=== PATIENT | female | born 1965 | race Caucasian/White ===

== ENCOUNTER 2020-04-21 16:57 | Emergency (ER) | payer MEDICARE, OTHER, SELFPAY ==
[2020-04-21 17:45] VITALS: PULSE 74; RESP 18; TEMP 36.8; O2SAT 95; BMI 31.1
--- NOTE | 2020-04-21 18:22 | HMH.EDUTC ---
[facility] – [place] Disposition Clinical Impression: Exposure to COVID-19 virus Disposition: Home, Self-Care Condition on Discharge: Good Instructions: DI for COVID-19 (Suspected or Confirmed ), Coronavirus Disease 2019, Preventing the Spread of Coronavirus Discharge Instructions Additional Instructions: *Monitor Temp, Over the counter Motrin or Tylenol as directed/as needed Tylenol every 4 hours and Motrin every 6 hours (as long as your family doctor has told you that you can take it) for fever or pain. and straight to ER if unable to lower temp less than 101.0 after medication given Follow up IMMEDIATELY for new or worsening symptoms or no Noticeable improvement over the next 48-72 hours. 911 for difficulty breathing or swallowing You were tested for today for COVID19 your test result should be back in the next 24-48 hours, you may call to the [facility] to see if your test results are back in the next 48 hours [phone] [facility] hours are 9am-9pm You was given a handout with instructions for Self Quarantine and Self isolation for while you wait on test results and what to do if they are positive If you are positive the Health Dept will be contacting you also Referrals: Lila Hughes [Primary Care Provider] - As needed Forms: Work/School Release Time of Disposition: 18:23 Medical Decision Making - Clarence Inquiry Pt receiving controlled substance: No Clarence was queried for this patient: No Vital Signs: 04/21/20 17:45 Temperature 98.2 F Temperature Source Oral Pulse Rate [Right] 74 Respiratory Rate 18 02 Sat by Pulse Oximetry 95 Oxygen Delivery Method Room Air Orders (Tests/Meds): ORDERS Category Date Time Status Covid-19 Nasal PCR ([facility]) Routine Lab 04/21/20 17:48 Received [facility] [place] HPI - General Stated complaint: Covid Test, Time Seen by Provider: 04/21/20 18:22 Mode of Arrival: Ambulatory Source of Information: Patient Limitations: No Limitations Description of Symptoms (Recalled from Triage Doc. by RN): COVID TEST D/T POSSIBLE EXPOSURE. DENIES SYMPTOMS HEENT Symptoms (Recalled from RN notes): No Resp Symptoms (Recalled from RN notes): No Skin Symptoms (Recalled from RN notes): No MS Symptoms (Recalled from RN notes): No Functional Status (Recalled from RN notes): WNL - History of Present Illness Provider Complaint: Patient state that she was around someone last week that has since tested positive for COVID States that she is not having any symptoms but she wanted to get tested - Related Data Previous Rx's Medication Instructions Recorded estradiol 2 mg tablet 2 mg PO DAILY #90 tab 10/06/19 Allergies Allergy/AdvReac Type Severity Reaction Status Date / Time No Known Allergies Allergy Verified 04/21/20 18:09 - Worker's Comp Is this a Worker's Comp case?: No [facility] History - Hepatitis A Screen Drug use history?: No High risk sexual behaviors?: No History of sexually transmitted infection?: No Currently employed?: No Childcare worker?: No Do you have indoor plumbing?: Yes Do you have electricity?: Yes Attestation statement:: This patient has been screened for Hepatitis A risk factors. I have reviewed the patient's past medical history: Yes ROS Obtained: Yes All systems reviewed & no additional complaints, Yes Systems reviewed as appropriate & no additional complaints - Constitutional Constitutional: Reports system reviewed and no additional complaints, except as docu, Denies body ache, Denies chills, Denies fever(s), Denies headache(s) - ENT Ears, Nose, Mouth, and Throat: Reports system reviewed and no additional complaints, except as docu - Cardiovascular Cardiovascular: Reports system reviewed and no additional complaints, except as docu - Respiratory Respiratory: Reports system reviewed and no additional complaints, except as docu Physical Exam - General General appearance: alert, in no apparent distress - ENT ENT exam: Present: normal exam, normal oropharynx, mucous membra
[2020-04-21 18:28] VITALS: BP 00/00; PULSE 74; RESP 18; TEMP 36.8; O2SAT 95
== END 2020-04-21 18:30 | disposition home or self-care (01) ==
PROVIDERS: Emergency Provider Nurse Practitioner; PCP Family Medicine
DX: Z20.822 Contact with and (suspected) exposure to COVID-19 (principal)
CPT/HCPCS: 99202; G0463; U0003

== ENCOUNTER 2021-09-28 23:05 | Emergency (ER) | payer MEDICARE, MEDICAID, SELFPAY ==
[2021-09-28 23:08] VITALS: BP 126/91; PULSE 87; RESP 20; TEMP 36.9; O2SAT 99; BMI 32.9
--- NOTE | 2021-09-28 23:32 | XR_ITS ---
PROCEDURE INFORMATION: Exam: XR Left Knee Exam date and time: 09/28/2021 11:40 PM Age: 55 years old Clinical indication: Injury or trauma; Fall; Sprain or strain; Patella or knee; Left TECHNIQUE: Imaging protocol: Radiologic exam of the Left knee. Views: 3 views. COMPARISON: No relevant prior studies available. FINDINGS: Bones/joints: No fracture. No blastic or lytic lesions. No significant joint effusion is present. Question mild osteoarthritic joint space narrowing in the tibiofemoral compartments. Soft tissues: No periostitis or osteolysis. No gross soft tissue abnormalities. No foreign bodies. Other findings: Normal alignment. IMPRESSION: 1. No acute findings. 2. Minor osteoarthritic changes.
--- NOTE | 2021-09-28 23:40 | XR_ITS ---
PROCEDURE INFORMATION: Exam: XR Right Knee Exam date and time: 09/28/2021 11:39 PM Age: 55 years old Clinical indication: Injury or trauma; Fall; Sprain or strain; Patella or knee; Right; Additional info: Pain TECHNIQUE: Imaging protocol: Radiologic exam of the Right knee. Views: 3 views. COMPARISON: No relevant prior studies available. FINDINGS: Bones/joints: No fracture. No blastic or lytic lesions. No significant joint effusion is present. Slight medial compartment joint space narrowing with mild medial joint line spurring. Soft tissues: No periostitis or osteolysis. No gross soft tissue abnormalities. No foreign bodies. Other findings: Normal alignment. IMPRESSION: 1. No acute findings. 2. Minor osteoarthritic changes in the medial compartment.
--- NOTE | 2021-09-29 00:49 | HMH.EDLOEX ---
ED Disposition Clinical Impression: Knee sprain, bilateral Contusion of hip, left Qualifiers: Encounter type: initial encounter Qualified Code(s): S70.02XA - Contusion of left hip, initial encounter Disposition: Home, Self-Care Condition on Discharge: Good Instructions: DI for Knee Pain Additional Instructions: ice and wt bearing as rodriguez and see pcp for follow up Referrals: Sudhakar Mathew MD [Primary Care Provider] - - Critical Care Critical Care Time: No Attestation: On 09/28/21, the high probability of a clinically significant, sudden or life threatening deterioration of the following system(s) required my full and direct attention, intervention and personal management. The time I documented below is in addition to time spent performing reported procedures but includes the following listed in this critical care notation. Medical Decision Making - Medical Records Medical records reviewed: Yes: I reviewed the patient's medical records. - Clarence Inquiry Pt receiving controlled substance: No Vital Signs: 09/28/21 23:08 Temperature 98.5 F Temperature Source Oral Pulse Rate [Left] 87 Respiratory Rate 20 Blood Pressure [Right Arm] 126/91 H Blood Pressure Mean [Right Arm] 102 02 Sat by Pulse Oximetry 99 Oxygen Delivery Method Room Air - Lab Data Lab results reviewed: Yes: I reviewed the patient's lab results. Orders (Tests/Meds): ED MEDICATIONS Discontinued Medications Generic Name Dose Route Start Last Admin Trade Name Momo PRN Reason Stop Dose Admin Ketorolac Tromethamine 60 mg 09/28/21 23:33 09/28/21 23:44 Ketorolac 30mg/Ml Vial IM 09/28/21 23:34 60 mg ONCE ONE Administration Methylprednisolone Sodium Succinate 125 mg 09/28/21 23:33 09/28/21 23:38 Methylprednisolone Sod Succ 125mg Vial IM 09/28/21 23:34 125 mg ONCE ONE Administration Ondansetron HCl 4 mg 09/28/21 23:33 09/28/21 23:38 Ondansetron 4mg Odt SL 09/28/21 23:34 4 mg ONCE ONE Administration - Radiology Data #1 Image(s): Pelvis, Hip, Knee Image Reviewed: Yes I have reviewed radiologist's interpretation Preliminary Findings: No Fracture Seen Medical Decision Narrative: acute injury with no fx noted - Lower Extremity Injury HPI - General Chief Complaint: Extremity Injury, Lower Stated Complaint: AO 07/02/22 2200 Injury left knee Time Seen by Provider: 09/29/21 00:49 Mode of Arrival: Wheelchair Source of Information: Patient, Medical Record Limitations: No Limitations Description of Symptoms (Recalled from ER Triage Doc. 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 the pt states that with impact the pain caused nausea and that she still feels it a little. pt states the pain is in the left knee at the bottom of the kneecap. - History of Present Illness HPI Narrative: slipped off money bars with knee and hip pain - no abd pain or loc MD complaint: hip injury, knee injury Onset (ago): hour(s) Injury: Left: hip, knee Type of Injury: blunt Place: home Severity: moderate Context: fall Associated symptoms: unable to bear weight Other symptoms: none - Related Data Previous Rx's Medication Instructions Recorded estradiol 2 mg tablet See Rx Instructions .ROUTE 08/06/20 .COMPLEX #90 tab Allergies Allergy/AdvReac Type Severity Reaction Status Date / Time No Known Allergies Allergy Verified 04/21/20 18:09 [facility] History - Hepatitis A Screen Attestation statement:: This patient has been screened for Hepatitis A risk factors. I have reviewed the patient's past medical history: Yes ROS Obtained: Yes All systems reviewed & no additional complaints - Constitutional Constitutional: Denies fever(s) - Eyes Eyes: Denies change in vision - ENT Ears, Nose, Mouth, and Throat: Denies sore throat - Cardiovascular Cardiovascular: Denies chest pain - Respiratory Respiratory: Denies shor
--- NOTE | 2021-09-29 00:54 | XR_ITS ---
PROCEDURE INFORMATION: Exam: XR Left Hip Exam date and time: 09/29/2021 1:00 AM Age: 55 years old Clinical indication: Injury or trauma; Fall; Blunt trauma (contusions or hematomas); Left; Hip TECHNIQUE: Imaging protocol: Radiologic exam of the Left hip. Views: 2 or 3 views hip with pelvis when performed. COMPARISON: No relevant prior studies available. FINDINGS: Bones/joints: No fracture. Hip joint spaces and articular surfaces are grossly well-maintained. No radiographic evidence to suggest transient osteoporosis or avascular necrosis. 9 mm probable bone island projecting in the left pubis. The visualized SI joints, pubic symphysis, and sacrum/pelvis were unremarkable. Moderate lower lumbar degenerative disc disease at L4-L5 and L5-S1. Soft tissues: No gross soft tissue abnormalities. Other findings: Normal alignment. The anatomic configuration does not specifically predispose to femoro-acetabular impingement. IMPRESSION: No acute findings.
[2021-09-29 01:44] VITALS: BP 125/79; PULSE 88; RESP 18; TEMP 36.8; O2SAT 98
== END 2021-09-29 02:06 | disposition home or self-care (01) ==
PROVIDERS: Emergency Provider Emergency Medicine; PCP Internal Medicine Adolescent Medicine
DX: S83.91XA Sprain of unspecified site of right knee, initial encounter (principal); S83.92XA Sprain of unspecified site of left knee, initial encounter; S70.02XA Contusion of left hip, initial encounter; W09.2XXA Fall on or from jungle gym, initial encounter
CPT/HCPCS: 73502; 73562; 96374; 96375; 99284

== ENCOUNTER 2021-10-29 21:34 | Emergency (ER) | payer MEDICARE, MEDICAID, SELFPAY ==
--- NOTE | 2021-10-29 21:52 | ECG_ITS ---
APPROVED REPORT Exam: Resting ECG HR:74 bpm ECG Measurements Heart Rate 74 AXES IA 204 P 70 QRSd 122 QRS 61 QT 408 T 60 QTc 435 Conclusion SINUS RHYTHM MODERATE INTRAVENTRICULAR CONDUCTION DELAY [110+ ms QRS DURATION] BORDERLINE ECG UNCONFIRMED REPORT Electronically signed by : Sudhakar Mathew MD 10/30/2021 21:02:29
[2021-10-29 21:59] VITALS: BP 147/87; PULSE 83; RESP 18; TEMP 37.2; O2SAT 93; BMI 31.1
--- NOTE | 2021-10-29 22:18 | XR_ITS ---
PROCEDURE INFORMATION: Exam: XR Chest Exam date and time: 10/29/2021 10:30 PM Age: 55 years old Clinical indication: Patient HX: Shortness of breath. Smoker. ; Additional info: Chest pain, short of breath TECHNIQUE: Imaging protocol: Radiologic exam of the chest. Views: 1 view. COMPARISON: No relevant prior studies available. FINDINGS: Lungs: Interstitial haziness in both lungs findings concerning for interstitial pneumonia superimposed on chronic interstitial lung disease. Granulomatous changes. Pleural spaces: Unremarkable. No pleural effusion. No pneumothorax. Heart/Mediastinum: Unremarkable. No cardiomegaly. Bones/joints: Unremarkable. IMPRESSION: Subtle interstitial pneumonia cannot be ruled out. Correlate clinically.
[2021-10-29 22:20] LABS: Coronavirus 19, PCR Not Detected (NotDetected); Influenza A, PCR Not Detected (NotDetected); Influenza B, PCR Not Detected (NotDetected)
[2021-10-29 22:23] LABS: Basophils # 0.1 K/mm3 (0-0.2); Basophils % 2.1 % (0.1-2.0); Eosinophils # 0.3 K/mm3 (0.0-0.4); Eosinophils % 5.4 % (0.1-12.0); Hematocrit 39.4 % (37.0-47.0); Hemoglobin 12.7 g/dL (12.2-16.2); Lymphocytes # 2.4 K/mm3 (0.7-4.5); Mean Corpuscular HGB Conc 32.2 g/dL (31.8-35.4); Mean Corpuscular Hemoglobin 31.2 pg (27.0-31.2); Mean Corpuscular Volume 96.8 fl (81-99); Mean Platelet Volume 9.2 fl (7.4-10.4); Monocytes # 0.4 K/mm3 (0.1-1.0); Monocytes % 6.2 % (1.7-9.3); Neutrophils # 2.9 K/mm3 (1.8-7.8); Neutrophils % 47.3 % (37.0-80.0); Platelet Count 180 K/mm3 (142-424); Red Blood Count 4.07 M/mm3 (4.20-5.40); Red Cell Distribution Width 13.1 % (11.5-17.5); White Blood Count 6.1 K/mm3 (4.8-10.8)
[2021-10-29 22:29] LABS: Alanine Aminotransferase 15 U/L (12-78); Albumin Level 3.7 g/dl (3.5-5.0); Albumin/Globulin Ratio 1.5 (1.1-1.8); Alkaline Phosphatase 109 U/L (38-126); Anion Gap 7.3 mEq/L (5-15); Aspartate Amino Transferase 25 U/L (14-36); Blood Urea Nitrogen 10 mg/dl (7-17); Calcium 9.1 mg/dl (8.4-10.2); Carbon Dioxide 30 mmol/L (22.0-30.0); Chloride 105 mmol/L (98-107); Creatinine Clearance Estimated 76 mL/min (50-200); Estimated Glomerular Filt Rate 57 ml/min (>60); GFR (African American) 69 ML/MIN (>60); Globulin 2.5 g/dL (1.3-3.2); Glucose 126 mg/dl (74-100); Potassium 3.3 mmoL/L (3.5-5.1); Sodium 139 mmol/L (136-145); Total Protein,Serum 6.2 g/dl (6.3-8.2)
[2021-10-29 22:32] LABS: Bilirubin,Total < 0.1 mg/dl (0.2-1.3)
[2021-10-29 22:49] LABS: Troponin I < 0.01 ng/ml (0.00-0.034)
[2021-10-29 23:00] VITALS: BP 142/89; PULSE 69; RESP 16; TEMP 36.7; O2SAT 94
--- NOTE | 2021-10-29 23:20 | HMH.EDGENADL ---
ED Disposition Clinical Impression: COPD exacerbation, Atypical pneumonia Disposition: Home, Self-Care Condition on Discharge: Fair Instructions: DI for Chronic Obstructive Pulmonary Disease, DI for Atypical Pneumonia Additional Instructions: You have been evaluated for cough, body aches, shortness of breath. You have been diagnosed with a COPD exacerbation. Please take prednisone as prescribed. Take 4 more days of azithromycin, for 5 days total. Use inhaler as needed. Follow-up with your primary care doctor. Return to the emergency department at once for any new or worsening symptoms, difficulty breathing, chest pain, other concerns. Prescriptions: Ipratropium/Albuterol Sulfate [Combivent Respimat Inh] 2 puff IH QID #1 each Transmission Status: Received by [facility] predniSONE [Prednisone 20mg Tab] 40 mg PO DAILY #10 tab Transmission Status: Received by [facility] Azithromycin [Z-Tom 250mg Tab] 250 mg PO DAILY #4 tab Transmission Status: Received by [facility] Referrals: Sudhakar Mathew MD [Primary Care Provider] - Time of Disposition: 23:27 - Critical Care Critical Care Time: No Attestation: On 10/29/21, the high probability of a clinically significant, sudden or life threatening deterioration of the following system(s) required my full and direct attention, intervention and personal management. The time I documented below is in addition to time spent performing reported procedures but includes the following listed in this critical care notation. Medical Decision Making - Medical Records Medical records reviewed: Yes: I reviewed the patient's medical records. - Clarence Inquiry Pt receiving controlled substance: No Vital Signs: 10/29/21 21:59 Temperature 98.9 F Temperature Source Oral Pulse Rate [Apical] 83 Respiratory Rate 18 Blood Pressure [Right Arm] 147/87 H Blood Pressure Mean [Right Arm] 107 Blood Pressure Source [Right Arm] Automatic Cuff Blood Pressure Position [Right Arm] Sitting 02 Sat by Pulse Oximetry 93 L Oxygen Delivery Method Room Air - Lab Data Lab Results 10/29/21 21:54: SARS-CoV-2 (PCR) Not detected, Influenza A Untype (PCR) Not detected, Influenza Type B (PCR) Not detected 10/29/21 22:00: WBC 6.1, RBC 4.07 L, Hgb 12.7, Hct 39.4, MCV 96.8, MCH 31.2, MCHC 32.2, RDW 13.1, Plt Count 180, MPV 9.2, Neut % (Auto) 47.3, Lymph % (Auto) 39.0, [place] % (Auto) 6.2, Eos % (Auto) 5.4, Baso % (Auto) 2.1 H, Neut # (Auto) 2.9, Lymph # (Auto) 2.4, [place] # (Auto) 0.4, Eos # (Auto) 0.3, Baso # (Auto) 0.1 10/29/21 22:00: Sodium 139, Potassium 3.3 L, Chloride 105, Carbon Dioxide 30, Anion Gap 7.3, BUN 10, Creatinine 1.00, Estimated Creat Clear 76, Estimated GFR 57 L, Est GFR ( Amer) 69, Glucose 126 H, Calcium 9.1, Total Bilirubin < 0.1 L, AST 25, ALT 15, Alkaline Phosphatase 109, Troponin I < 0.01, Total Protein 6.2 L, Albumin 3.7, Globulin 2.5, Albumin/Globulin Ratio 1.5 10/29/21 22:18: VBG pH 7.34, VBG pCO2 52.9 H, VBG pO2 46.7 H, VBG HCO3 27.9, VBG Total CO2 29.5 H, VBG O2 Saturation 84.4 H, VBG Base Excess 2.1 Result diagrams: 10/29/21 22:00 10/29/21 22:00 Orders (Tests/Meds): ED MEDICATIONS Generic Name Dose Route Start Last Admin Trade Name Freq PRN Reason Stop Dose Admin Azithromycin 500 mg/ Sodium 250 mls @ 250 mls/hr 10/29/21 23:30 10/29/21 23:47 Chloride IV 11/12/21 23:29 250 mls/hr Q24H MELINA Administration Discontinued Medications Generic Name Dose Route Start Last Admin Trade Name Freq PRN Reason Stop Dose Admin Ceftriaxone Sodium 1 gm/ 50 mls @ 100 mls/hr 10/29/21 23:29 10/29/21 23:32 Sodium Chloride IV 10/29/21 23:58 100 mls/hr ONCE ONE Administration Methylprednisolone Sodium Succinate 125 mg 10/29/21 23:29 10/29/21 23:32 Methylprednisolone Sod Succ 125mg Vial IV 10/29/21 23:30 125 mg ONCE ONE Administration ORDERS Category Date Time Status Troponin I Q3H Lab
[2021-10-29 23:40] LABS: VBG Base Excess 2.1 mmol/L (-2.4-2.3); VBG HCO3 27.9 mmol/L (23-30); VBG Oxygen Saturation 84.4 % (50-70); VBG PH 7.34 mmol/L (7.31-7.41); VBG PO2 46.7 mmol/L (28-40); VBG Total CO2 29.5 mmol/L (23-27)
[2021-10-29 23:43] LABS: VBG PCO2 52.9 mmol/L (35-51)
--- NOTE | 2021-10-29 23:44 | PC.NURSE ---
VBG RESULTS TO DR. LINARES. PH 7.34 CO2 52.9 PO2 46.7 HCO3 27.9.
[2021-10-30] VITALS: BP 148/92; PULSE 68; RESP 16; O2SAT 93
[2021-10-30 00:24] VITALS: BP 148/92; PULSE 83; RESP 18; TEMP 37.2; O2SAT 93
[2021-10-30 00:45] VITALS: PULSE 66; PULSE 70
[2021-10-30 01:00] VITALS: BP 149/94; PULSE 84; RESP 16; TEMP 36.8; O2SAT 94
== END 2021-10-30 01:15 | disposition home or self-care (01) ==
PROVIDERS: Emergency Provider Emergency Medicine; PCP Internal Medicine Adolescent Medicine
DX: J18.9 Pneumonia, unspecified organism (principal); J44.1 Chronic obstructive pulmonary disease with (acute) exacerbation; Z91.19 Patient's noncompliance with other medical treatment and regimen; Z72.0 Tobacco use
CPT/HCPCS: 71045; 80053; 82803; 84484; 85025; 93005; 94640; 96365; 96367; 96375; 99284; C9803; J0456; J0696; U0003; U0005

== ENCOUNTER 2021-12-05 21:28 | Emergency (ER) | payer MEDICARE, MEDICAID, SELFPAY ==
[2021-12-05 21:30] VITALS: BP 175/108; PULSE 84; RESP 16; TEMP 37.7; O2SAT 89; BMI 29.2
--- NOTE | 2021-12-05 21:36 | ECG_ITS ---
APPROVED REPORT Exam: Resting ECG HR:83 bpm ECG Measurements Heart Rate [address] 179 P 77 QRSd 114 QRS 72 QT 365 T 65 QTc 405 Conclusion SINUS RHYTHM MODERATE INTRAVENTRICULAR CONDUCTION DELAY [110+ ms QRS DURATION] NONSPECIFIC T-WAVE ABNORMALITY BORDERLINE ECG UNCONFIRMED REPORT Electronically signed by : Sudhakar Mathew MD 12/08/2021 15:28:38
[2021-12-05 21:45] LABS: Coronavirus 19, PCR Not Detected (NotDetected); Influenza A, PCR Not Detected (NotDetected); Influenza B, PCR Not Detected (NotDetected)
--- NOTE | 2021-12-05 21:57 | PC.NURSE ---
RT at BS to administer breathing treatment
[2021-12-05 22:00] VITALS: BP 175/108; PULSE 78; O2SAT 98
--- NOTE | 2021-12-05 22:09 | XR_ITS ---
PROCEDURE INFORMATION: Exam: XR Chest Exam date and time: 12/05/2021 10:13 PM Age: 55 years old Clinical indication: Shortness of breath; Additional info: Short of air TECHNIQUE: Imaging protocol: Radiologic exam of the chest. Views: 2 views. COMPARISON: CR XR CHEST PORTABLE 10/29/2021 10:30 PM FINDINGS: Lungs: No consolidation. Pleural spaces: No pneumothorax. Heart/Mediastinum: No cardiomegaly. Bones/joints: No acute fracture. IMPRESSION: No acute findings.
[2021-12-05 22:17] LABS: Microscopic, Urine URINE MICROSCOPIC (MICROSCOPIC)
[2021-12-05 22:30] VITALS: BP 188/121; PULSE 79; O2SAT 93
--- NOTE | 2021-12-05 22:40 | PC.NURSE ---
Pt given warm blanket and drink per request
[2021-12-05 22:53] LABS: Appearance,Urine CLEAR (Clear); Blood, Urine TRACE-I (Negative); Color,Urine YELLOW (Yellow); Glucose,Urine (UA) Negative (Negative); Ketones,Urine Negative (Negative); Leukocyte Esterase,Urine Negative (Negative); Nitrate,Urine Negative (Negative); Protein,Urine TRACE (Negative); Specific Gravity, Urine >= 1.030 (1.005-1.030)
[2021-12-05 22:55] LABS: Bilirubin,Urine 1+ (Negative)
[2021-12-05 23:00] VITALS: BP 193/114; PULSE 74; O2SAT 93
[2021-12-05 23:07] LABS: Squamous Epithelial Cell,Urine Occasional #/hpf (0-5); WBC,Urine Occasional #/hpf (0-3)
[2021-12-05 23:08] LABS: Bacteria,Urine 1+ /lpf; Mucus,Urine 2+ /lpf
--- NOTE | 2021-12-05 23:12 | HMH.EDSOB ---
Discharge Plan Disposition Chief Complaint: Shortness of Breath/Dyspnea Prescriptions Prescriptions: No Action buprenorphine-naloxone 1 EACH film 1 each SL DAILY albuterol sulfate 8.5 GM HFA aerosol inhaler 8.5 gm IH Q4-6H PRN (Reason: copd) azithromycin 250 MG tablet 250 mg PO DAILY Qty: 4 0RF prednisone 20 MG tablet 40 mg PO DAILY Qty: 10 0RF ipratropium-albuterol 120 PUFF mist 2 puff IH QID Qty: 1 0RF Referrals Follow up/Referrals: Lila Hughes [Primary Care Provider] - See instructions Clinical Impressions Clinical Impression: Acute exacerbation of chronic obstructive airways disease Instructions Patient Instructions: DI for Chronic Obstructive Pulmonary Disease Discharge ED Provider: Raymond Mendez Resp/SOB HPI General Chief Complaint: Shortness of Breath/Dyspnea Stated Complaint: SOA AND CASTANON Time Seen by Provider: 12/05/21 23:13 Mode of Arrival: Ambulatory Source of Information: Patient and Medical Record Limitations: No Limitations Description of Symptoms (Recalled from ER Triage Doc. by RN): pt states she has been short of breath for a few days pt also states pt was exposed to covid over the weekend pt has copd. pt has not had home o2 for 2.5 months since her house fell in on it History of Present Illness pt with hx of copd ans has been off o2 and breathing treatment s - has chills and exposure to covid-19 Complaint: shortness of breath and cough Onset (ago): day(s) Severity: moderate Known history of: COPD Associated symptoms: chest pain and cough Treatment prior to arrival: bronchodilator Related Data Home oxygen amount: 2 liters Home Medications Medication Instructions Recorded Confirmed albuterol sulfate 90 mcg/actuation 8.5 gm inhalation Q4-6H PRN copd 10/29/21 10/29/21 aerosol inhaler buprenorphine 8 mg-naloxone 2 mg 1 each sublingual DAILY drug 10/29/21 10/29/21 sublingual film withdrawal Previous Rx's Medication Instructions Recorded azithromycin 250 mg tablet 250 mg PO DAILY #4 tabs 10/29/21 ipratropium 20 mcg-albuterol 100 2 puff inhalation QID #1 ea 10/29/21 mcg/actuation mist for inhalation prednisone 20 mg tablet 40 mg PO DAILY #10 tabs 10/29/21 Allergies Allergy/AdvReac Type Severity Reaction Status Date / Time No Known Allergies Allergy Verified 04/21/20 18:09 [facility] Social History Smoking Status: Current every day smoker alcohol intake: never current occupational status: unemployed Travel in the last 8 weeks: None ROS Obtained: Yes All systems reviewed & no additional complaints except as documented Constitutional Constitutional: Denies fever(s) and Reports malaise Cardiovascular Cardiovascular: Reports dyspnea Respiratory Respiratory: Reports cough and Reports dyspnea Physical Exam General General appearance: alert Head Head exam: normocephalic Eye Eye exam: Present PERRL and EOMI ENT ENT exam: Present mucous membranes moist Neck Neck exam: Present trachea midline Respiratory Respiratory exam: Present normal lung sounds bilaterally and wheezes; Absent respiratory distress Cardiovascular Cardiovascular exam: Present regular rate and systolic murmur Abdominal Exam Abdominal exam: Present soft Extremities Exam Extremities exam: Absent calf tenderness Neurological Exam Neurological exam: Present alert, oriented X3 and CN II-XII intact Psychiatric Psychiatric exam: Present normal affect Skin Skin exam: Absent rash Medical Decision Making Medical Records Medical records reviewed: Yes I reviewed the patient's medical records. Clarence Inquiry Pt receiving controlled substance: No Vital Signs: 12/05/21 21:30 12/05/21 22:00 12/05/21 22:30 Temperature 99.8 F H Temperature Source Oral Pulse Rate 78 79 Pulse Rate [Right] 84 Respiratory Rate 16 Blood Pressure 175/108 H 188/121 H Blood Pressure [Right Arm] 175/108 H Blood Pressure Mean [Right Arm] 130 Blood Pressure Source
[2021-12-05 23:30] VITALS: BP 160/100; PULSE 77; O2SAT 90
[2021-12-05 23:37] LABS: Basophils # 0.1 K/mm3 (0-0.2); Basophils % 0.8 % (0.1-2.0); Eosinophils # 0.2 K/mm3 (0.0-0.4); Eosinophils % 2.3 % (0.1-12.0); Hematocrit 42.1 % (37.0-47.0); Hemoglobin 13.3 g/dL (12.2-16.2); Lymphocytes # 1.3 K/mm3 (0.7-4.5); Lymphocytes % 13.4 % (10-50); Mean Corpuscular HGB Conc 31.6 g/dL (31.8-35.4); Mean Corpuscular Hemoglobin 29.5 pg (27.0-31.2); Mean Corpuscular Volume 93.5 fl (81-99); Mean Platelet Volume 8.9 fl (7.4-10.4); Monocytes # 0.2 K/mm3 (0.1-1.0); Monocytes % 2.1 % (1.7-9.3); Neutrophils # 7.8 K/mm3 (1.8-7.8); Neutrophils % 81.4 % (37.0-80.0); Platelet Count 175 K/mm3 (142-424); Red Cell Distribution Width 13.1 % (11.5-17.5); White Blood Count 9.6 K/mm3 (4.8-10.8)
[2021-12-05 23:37] LABS: ABG Base Excess -1.6 mmol/L (-2.4-2.3); ABG HCO3 23.3 mmhg (22.0-26.0); ABG Oxygen Saturation 90 % (90-100); ABG PCO2 38.8 mmhg (35.0-45.0); ABG PO2 52.9 mmhg (80-100); ABG TCO2 24.5 mmhg (23-27)
[2021-12-05 23:38] LABS: Allen's Test Acceptable; Source Left Radial
[2021-12-05 23:46] LABS: Alanine Aminotransferase 9 U/L (12-78); Albumin Level 3.4 g/dl (3.5-5.0); Albumin/Globulin Ratio 1.4 (1.1-1.8); Alkaline Phosphatase 113 U/L (38-126); Anion Gap 4.7 mEq/L (5-15); Aspartate Amino Transferase 18 U/L (14-36); Blood Urea Nitrogen 9 mg/dl (7-17); Calcium 8.3 mg/dl (8.4-10.2); Carbon Dioxide 30 mmol/L (22.0-30.0); Chloride 109 mmol/L (98-107); Creatinine Clearance Estimated 80 mL/min (50-200); Estimated Glomerular Filt Rate 65 ml/min (>60); GFR (African American) 78 ML/MIN (>60); Globulin 2.5 g/dL (1.3-3.2); Glucose 86 mg/dl (74-100); Potassium 3.7 mmoL/L (3.5-5.1); Sodium 140 mmol/L (136-145); Total Protein,Serum 5.9 g/dl (6.3-8.2)
--- NOTE | 2021-12-05 23:47 | PC.NURSE ---
Pt complains of CASTANON and asks for Tylenol. RN notified.
[2021-12-05 23:49] LABS: Bilirubin,Total < 0.1 mg/dl (0.2-1.3)
[2021-12-05 23:51] LABS: C-Reactive Protein 25.9 mg/L (0-4)
[2021-12-06 00:01] LABS: Troponin I < 0.01 ng/ml (0.00-0.034)
[2021-12-06 00:02] LABS: Procalcitonin 0.066 ng/mL (0.0-2.0)
[2021-12-06 00:04] LABS: Erythrocyte Sedimentation Rate 33 mm/hr (0-30)
[2021-12-06 00:32] VITALS: BP 146/86; PULSE 78; RESP 16; TEMP 36.6; O2SAT 89
== END 2021-12-06 00:35 | disposition home or self-care (01) ==
PROVIDERS: Emergency Provider Emergency Medicine; PCP Family Medicine
DX: J44.1 Chronic obstructive pulmonary disease with (acute) exacerbation (principal); Z20.822 Contact with and (suspected) exposure to COVID-19; Z79.899 Other long term (current) drug therapy; Z72.0 Tobacco use
CPT/HCPCS: 71046; 80053; 81001; 82803; 84145; 84484; 85025; 85651; 86140; 93005; 96365; 96375; 99285; C9803; U0003; U0005

== ENCOUNTER 2022-01-31 16:40 | Emergency (ER) | payer MEDICARE, MEDICAID, SELFPAY ==
[2022-01-31 16:43] VITALS: BP 148/103; PULSE 84; RESP 18; TEMP 36.8; O2SAT 99; BMI 32.9
[2022-01-31 17:04] LABS: Coronavirus 19, PCR Not Detected (NotDetected); Influenza A, PCR Not Detected (NotDetected); Influenza B, PCR Not Detected (NotDetected)
--- NOTE | 2022-01-31 17:25 | PC.NURSE ---
pt in bed, pt had 7up with her that was sitting in the chair pt asked me to give it to her
[2022-01-31 17:30] VITALS: BP 135/82; PULSE 74; O2SAT 98
--- NOTE | 2022-01-31 17:41 | PC.NURSE ---
ED MD AT BEDSIDE FOR EVALUATION
--- NOTE | 2022-01-31 17:42 | HMH.EDGENADL ---
Discharge Plan Disposition Patient Disposition: Home, Self-Care Condition: Good Prescriptions Prescriptions: New ondansetron 4 mg tablet,disintegrating 4 mg PO Q8H 4 Days Qty: 12 0RF No Action buspirone 10 mg tablet 10 mg PO BID Qty: 60 2RF ipratropium-albuterol 0.5 mg-3 mg(2.5 mg base)/3 mL solution for nebulization 3 ml inhalation QID PRN (Reason: shortness of breath or wheezing) Qty: 180 0RF albuterol sulfate 90 mcg/actuation HFA aerosol inhaler 1 inh IH Q4-6H PRN (Reason: copd) Qty: 8.5 0RF calcium polycarbophil [FiberCon] 625 mg tablet 1,250 mg PO DAILY Qty: 60 0RF prednisone 10 mg tablet 10 mg PO DAILY Qty: 25 0RF Rx Instructions: 2 tabs x5 days, then 1 tab x5 days gabapentin 300 mg capsule 300 mg PO TID Qty: 90 2RF ipratropium-albuterol 20-100 mcg/actuation mist 1 puff IH QID Qty: 1 1RF Referrals Follow up/Referrals: Raymond Mendez MD [Primary Care Provider] - See instructions Activity Restrictions/Add. Instructions Additional Instructions/Restrictions: At this time was felt you are safe to be discharged home. If new or worsening symptoms please do not hesitate to return to the emergency department. Please take your medication as prescribed. Clinical Impressions Clinical Impression: Diarrhea Instructions Patient Instructions: DI for Diarrhea and Traveler's Diarrhea -- Adult, DI for Diarrhea and Traveler's Diarrhea -- Child, DI for Nausea -- Adult, DI for Nausea -- Child Discharge ED Provider: Frank Mckoy General Adult HPI General Chief complaint: Nausea/Vomiting/Diarrhea Stated complaint: sent fr [facility]oli bodysophie,diarrhea Time Seen by Provider: 01/31/22 17:38 Mode of Arrival: Ambulatory Limitations: No Limitations Description of Symptoms (Recalled from ER Triage Doc. by RN): PT REPORTS DIARRHEA X 2 DAYS. HEADACHE AND CHILLS History of Present Illness HPI narrative: Patient is a 56-year-old lady female with past medical history of COPD on 2 L nasal cannula at home who presents emergency department for evaluation of nausea, vomiting, diarrhea. Patient says that her abdomen is sore from profuse diarrhea however does not state that she has any acute abdominal pain. Vomiting and diarrhea have been nonbloody. Onset over the last 24 to 48 hours. No other acute complaints at this time. Related Data Previous Rx's Medication Instructions Recorded buspirone 10 mg tablet 10 mg PO BID #60 tabs 01/08/22 gabapentin 300 mg capsule 300 mg PO TID #90 caps 01/10/22 ipratropium 20 mcg-albuterol 100 1 puff inhalation QID #1 ea 01/22/22 mcg/actuation mist for inhalation albuterol sulfate 90 mcg/actuation 1 inh inhalation Q4-6H PRN copd 01/31/22 aerosol inhaler #8.5 grams calcium polycarbophil 625 mg 1,250 mg PO DAILY #60 tabs 01/31/22 tablet (FiberCon) ipratropium 0.5 mg-albuterol 3 mg 3 ml inhalation QID PRN shortness 01/31/22 (2.5 mg base)/3 mL nebulization of breath or wheezing #180 mL soln ondansetron 4 mg disintegrating 4 mg PO Q8H 4 days #12 tabs 01/31/22 tablet prednisone 10 mg tablet 10 mg PO DAILY #25 tabs 01/31/22 Allergies Allergy/AdvReac Type Severity Reaction Status Date / Time No Known Allergies Allergy Verified 01/31/22 16:16 [facility] Social History Smoking Status: Current every day smoker alcohol intake: never current occupational status: unemployed Travel in the last 8 weeks: None ROS Obtained: Yes Systems reviewed as appropriate & no additional complaints except as documented Physical Exam General General appearance: alert and in no apparent distress Head Head exam: atraumatic and normocephalic Eye Eye exam: Present PERRL and EOMI ENT ENT exam: Present mucous membranes moist Neck Neck exam: Present normal inspection Chest Chest inspection: Present normal inspection and symmetric chest wall rise Respiratory Respiratory exam: Present normal lung
--- NOTE | 2022-01-31 17:58 | PC.NURSE ---
PT MEDICATED AT THIS TIME PER EMAR, WARM BLANKET PROVIDED
[2022-01-31 18:00] VITALS: BP 139/80; PULSE 72; RESP 18; O2SAT 99
--- NOTE | 2022-01-31 18:25 | PC.NURSE ---
ED MD AT BEDSIDE TO REEVALUATE PT
[2022-01-31 20:34] VITALS: BP 135/80; PULSE 74; RESP 18; TEMP 36.8; O2SAT 98
== END 2022-01-31 20:36 | disposition home or self-care (01) ==
PROVIDERS: Emergency Provider Emergency Medicine; PCP Emergency Medicine
DX: R19.7 Diarrhea, unspecified (principal); R11.2 Nausea with vomiting, unspecified; R51.9 Headache, unspecified
CPT/HCPCS: 96365; 96375; 99284; C9803; J2405; U0003; U0005

== ENCOUNTER 2022-04-01 11:00 | Emergency (ER) | payer MEDICARE, MEDICAID, SELFPAY ==
[2022-04-01 11:00] VITALS: BP 183/95; PULSE 73; RESP 16; TEMP 36.8; O2SAT 97; BMI 32.9
[2022-04-01 12:01] VITALS: BP 150/79; PULSE 72; RESP 16; O2SAT 95
--- NOTE | 2022-04-01 12:13 | PC.NURSE ---
[facility] at
--- NOTE | 2022-04-01 12:16 | XR_ITS ---
FINAL REPORT TECHNIQUE: Two views CLINICAL HISTORY: weakNESS COMPARISON: 12/05/2021 FINDINGS: No acute pulmonary density is present. Mediastinal contour is normal. Heart size is stable. IMPRESSION: Stable chest exam without acute disease Reviewed, Interpreted and Dictated by Maricel Rabago MD Transcribed by Lizzy Delcid Authenticated and [facility]
--- NOTE | 2022-04-01 12:17 | HMH.EDGENADL ---
Discharge Plan Disposition Patient Disposition: Home, Self-Care Condition: Good Prescriptions Prescriptions: No Action albuterol sulfate 90 mcg/actuation HFA aerosol inhaler 1 inh IH Q4-6H PRN (Reason: copd) Qty: 8.5 0RF ipratropium-albuterol 20-100 mcg/actuation mist 1 puff IH QID Qty: 4 1RF ipratropium-albuterol 0.5 mg-3 mg(2.5 mg base)/3 mL solution for nebulization See Rx Instructions .ROUTE .COMPLEX Qty: 180 0RF Dose Instruction: INHALE CONTENTS OF 1 VIAL VIA NEBULIZER FOUR TIMES A DAY NEEDED FOR SHORTNESS OF BREATH OR WHEEZING Rx Instructions: INHALE CONTENTS OF 1 VIAL VIA NEBULIZER FOUR TIMES A DAY NEEDED FOR SHORTNESS OF BREATH OR WHEEZING benzonatate 100 mg Capsule 100 mg PO TID fluticasone propionate 100 mcg/actuation Blister With Device 1 inh INHALATION BID Spiriva with HandiHaler 18 mcg Capsule, W/Inhalation Device 1 cap INHALATION DAILY Rx Instructions: puncture 1 cap using device; one dose = 2 inhalations buprenorphine-naloxone [Suboxone] 8-2 mg Film 1 film BUCCAL BID buspirone 10 mg tablet 10 mg PO BID calcium polycarbophil [FiberCon] 625 mg tablet 1,250 mg PO DAILY gabapentin 300 mg capsule 300 mg PO TID estradiol 1 mg tablet 1 mg PO DAILY Referrals Follow up/Referrals: Raymond Mendez MD [Primary Care Provider] - See instructions Activity Restrictions/Add. Instructions Additional Instructions/Restrictions: Fill your prescription for Suboxone and begin taking. Follow-up with primary care provider if symptoms persist. Clinical Impressions Clinical Impression: Opioid withdrawal, Weakness Instructions Patient Instructions: Drug and Alcohol Withdrawal, DI for Muscle Weakness Discharge ED Provider: Sebastian Salamanca General Adult HPI General Chief complaint: Weakness Stated complaint: flu like symptoms Time Seen by Provider: 04/01/22 12:13 Mode of Arrival: EMS Source of Information: Patient Limitations: No Limitations Description of Symptoms (Recalled from ER Triage Doc. by RN): pt reports generalized weakness, no energy, diarrhea x2 days. Pt reports [facility] she began very weak, states no LOC. Pt reports was at the clinic for her appt today for suboxone prescription, staes she has been out of her medication x3 days. Pt denies fevers History of Present Illness HPI narrative: Patient says that [facility] her [facility] prescription when she began getting very weak and fell to the ground. She did not injure her self. She did not lose consciousness. States that she has been out of her Suboxone for 3 days. For 2 days she has been feeling very weak. She denies any other illness. Denies pain. She denies vomiting and diarrhea, although she told the nurse she has had diarrhea. Denies fever. Denies URI symptoms. Denies chest pain or shortness of breath. She thinks her symptoms are due to being out of Suboxone. She has the prescription, she just needs to go to the pharmacy. Related Data Home Medications Medication Instructions Recorded Confirmed benzonatate 100 mg capsule 100 mg PO TID Cough/cold 02/10/22 03/10/22 buprenorphine 8 mg-naloxone 2 mg 1 film buccal BID addiction 02/10/22 04/01/22 sublingual film (Suboxone) buspirone 10 mg tablet 10 mg PO BID Anxiety 02/10/22 03/10/22 calcium polycarbophil 625 mg 1,250 mg PO DAILY bowels 02/10/22 03/10/22 tablet (FiberCon) fluticasone propionate 100 1 inh inhalation BID COPD 02/10/22 03/10/22 mcg/actuation blister powder for inhalation gabapentin 300 mg capsule 300 mg PO TID Pain 02/10/22 04/01/22 tiotropium bromide 18 mcg capsule 1 cap inhalation DAILY COPD 02/10/22 03/10/22 with inhalation device (Spiriva with HandiHaler) estradiol 1 mg tablet 1 mg PO DAILY homones 04/01/22 04/01/22 Previous Rx's Medication Instructions Recorded albuterol sulfate 90 mcg/actuation 1 inh
--- NOTE | 2022-04-01 12:40 | PC.NURSE ---
pt sitting up on side of the bed eating lunch tray
[2022-04-01 12:52] LABS: Microscopic, Urine URINE MICROSCOPIC (MICROSCOPIC)
[2022-04-01 12:52] LABS: Coronavirus 19, PCR Not Detected (NotDetected); Influenza A, PCR Not Detected (NotDetected); Influenza B, PCR Not Detected (NotDetected)
[2022-04-01 12:54] LABS: Basophils # 0.1 K/mm3 (0-0.2); Basophils % 1.7 % (0.1-2.0); Eosinophils # 0.3 K/mm3 (0.0-0.4); Eosinophils % 5.6 % (0.1-12.0); Hematocrit 42.3 % (37.0-47.0); Hemoglobin 13.6 g/dL (12.2-16.2); Lymphocytes # 1.8 K/mm3 (0.7-4.5); Lymphocytes % 37.7 % (10-50); Mean Corpuscular HGB Conc 32.1 g/dL (31.8-35.4); Mean Corpuscular Hemoglobin 30.6 pg (27.0-31.2); Mean Corpuscular Volume 95.5 fl (81-99); Mean Platelet Volume 8.9 fl (7.4-10.4); Monocytes # 0.2 K/mm3 (0.1-1.0); Monocytes % 4.5 % (1.7-9.3); Neutrophils # 2.4 K/mm3 (1.8-7.8); Neutrophils % 50.5 % (37.0-80.0); Platelet Count 208 K/mm3 (142-424); Red Blood Count 4.43 M/mm3 (4.20-5.40); Red Cell Distribution Width 13.8 % (11.5-17.5); White Blood Count 4.8 K/mm3 (4.8-10.8)
[2022-04-01 12:58] LABS: Appearance,Urine CLEAR (Clear); Bilirubin,Urine Negative (Negative); Blood, Urine TRACE-L (Negative); Color,Urine STRAW (Yellow); Glucose,Urine (UA) Negative (Negative); Ketones,Urine Negative (Negative); Leukocyte Esterase,Urine Negative (Negative); Nitrate,Urine Negative (Negative); PH,Urine 6.5 (5.0-8.5); Protein,Urine Negative (Negative); Specific Gravity, Urine <= 1.005 (1.005-1.030); Urobilinogen,Urine 0.2 EU/dl (0.2)
[2022-04-01 12:59] LABS: Alanine Aminotransferase 11 U/L (12-78); Albumin/Globulin Ratio 1.6 (1.1-1.8); Alkaline Phosphatase 98 U/L (38-126); Aspartate Amino Transferase 22 U/L (14-36); Bilirubin,Total 0.4 mg/dl (0.2-1.3); Blood Urea Nitrogen 10 mg/dl (7-17); Calcium 9.1 mg/dl (8.4-10.2); Carbon Dioxide 28 mmol/L (22.0-30.0); Chloride 107 mmol/L (98-107); Creatinine Clearance Estimated 80 mL/min (50-200); Estimated Glomerular Filt Rate 57 ml/min (>60); GFR (African American) 69 ML/MIN (>60); Globulin 2.5 g/dL (1.3-3.2); Glucose 86 mg/dl (74-100); Sodium 138 mmol/L (136-145); Total Protein,Serum 6.5 g/dl (6.3-8.2)
[2022-04-01 13:08] LABS: Barbiturates Screen,Urine Negative ng/ml (<200)
[2022-04-01 13:09] LABS: Amphetamine/Metha Screen,Urine Negative ng/ml (<1000); Benzodiazepines Screen,Urine Negative ng/ml (<200)
[2022-04-01 13:10] LABS: Cannabinoid Screen,Urine Negative ng/ml (<50)
[2022-04-01 13:12] LABS: Opiate Screen,Urine Negative ng/ml (<300)
[2022-04-01 13:13] LABS: Phencyclidine Screen,Urine Negative ng/ml (<25)
[2022-04-01 13:15] LABS: Cocaine Screen,Urine Negative ng/ml (<300)
[2022-04-01 13:16] LABS: Methadone Screen,Urine Negative ng/ml (<300)
[2022-04-01 13:16] LABS: Troponin I < 0.01 ng/ml (0.00-0.034)
[2022-04-01 13:19] LABS: RBC,Urine Occasional #/hpf (0-3); Squamous Epithelial Cell,Urine Occasional #/hpf (0-5); WBC,Urine Occasional #/hpf (0-3)
--- NOTE | 2022-04-01 13:34 | ECG_ITS ---
APPROVED REPORT Exam: Resting ECG HR:71 bpm ECG Measurements Heart Rate 71 AXES ME 194 P 81 QRSd 117 QRS 78 QT 427 T 85 QTc 450 Conclusion SINUS RHYTHM MODERATE INTRAVENTRICULAR CONDUCTION DELAY [110+ ms QRS DURATION] NONSPECIFIC T-WAVE ABNORMALITY BORDERLINE ECG UNCONFIRMED REPORT Electronically signed by : Sudhakar Mathew MD 04/01/2022 16:54:05
--- NOTE | 2022-04-01 13:43 | PC.NURSE ---
called lab to check on status of covid swab. lab states had to do qc on the machine, states pt swab is first in line to do, second qc in running on machine now. notified [facility]
[2022-04-01 14:53] VITALS: BP 162/100; PULSE 71; RESP 16; TEMP 36.8; O2SAT 97
== END 2022-04-01 14:53 | disposition home or self-care (01) ==
PROVIDERS: Emergency Provider Emergency Medicine; PCP Emergency Medicine
DX: F11.23 Opioid dependence with withdrawal (principal); R53.1 Weakness; J44.9 Chronic obstructive pulmonary disease, unspecified; F17.210 Nicotine dependence, cigarettes, uncomplicated; Z90.710 Acquired absence of both cervix and uterus; Z20.822 Contact with and (suspected) exposure to COVID-19
CPT/HCPCS: 71046; 80053; 80305; 81001; 84484; 85025; 93005; 99285; C9803; U0003; U0005

== ENCOUNTER 2022-04-04 16:03 | Emergency (ER) | payer MEDICARE, MEDICAID, SELFPAY ==
[2022-04-04 16:10] VITALS: BP 136/87; PULSE 70; RESP 22; TEMP 36.6; O2SAT 94; BMI 32.9
--- NOTE | 2022-04-04 16:32 | EXP.UTC ---
Discharge Plan Disposition Patient Disposition: Home, Self-Care Condition: Good Prescriptions Prescriptions: New azithromycin [Zithromax Z-Tom] 250 mg tablet See Rx Instructions .ROUTE .COMPLEX 5 Days Qty: 6 0RF Rx Instructions: For 250 mg dose pack: take 500 mg today (day 1), then 250 mg for 4 days (days 2-5) prednisone [prednisone] 20 mg tablet 20 mg PO BID 5 Days Qty: 10 0RF No Action albuterol sulfate 90 mcg/actuation HFA aerosol inhaler 1 inh IH Q4-6H PRN (Reason: copd) Qty: 8.5 0RF ipratropium-albuterol 20-100 mcg/actuation mist 1 puff IH QID Qty: 4 1RF ipratropium-albuterol 0.5 mg-3 mg(2.5 mg base)/3 mL solution for nebulization See Rx Instructions .ROUTE .COMPLEX Qty: 180 0RF Dose Instruction: INHALE CONTENTS OF 1 VIAL VIA NEBULIZER FOUR TIMES A DAY NEEDED FOR SHORTNESS OF BREATH OR WHEEZING Rx Instructions: INHALE CONTENTS OF 1 VIAL VIA NEBULIZER FOUR TIMES A DAY NEEDED FOR SHORTNESS OF BREATH OR WHEEZING benzonatate 100 mg Capsule 100 mg PO TID fluticasone propionate 100 mcg/actuation Blister With Device 1 inh INHALATION BID Spiriva with HandiHaler 18 mcg Capsule, W/Inhalation Device 1 cap INHALATION DAILY Rx Instructions: puncture 1 cap using device; one dose = 2 inhalations buprenorphine-naloxone [Suboxone] 8-2 mg Film 1 film BUCCAL BID buspirone 10 mg tablet 10 mg PO BID calcium polycarbophil [FiberCon] 625 mg tablet 1,250 mg PO DAILY gabapentin 300 mg capsule 300 mg PO TID estradiol 1 mg tablet 1 mg PO DAILY Referrals Follow up/Referrals: Raymond Mendez MD [Primary Care Provider] - See instructions Activity Restrictions/Add. Instructions Additional Instructions/Restrictions: Start oral steriod tomorrow Start antibiotic today. Be sure to complete entire prescription even if feeling better Monitor temp. Tylenol every 4 hours as needed and / or ibuprofen every 6 hours as needed ( As long as your primary care physician has told you that it ok to take both. For fever/aches/pains ER if no less than 101 despite Tylenol or Motrin Humidifier/vaporizer or hot steamy shower Inhaler every 4-6 hours as needed like we discussed. If unsure how to use it, ask pharmacist to demonstrate how. Should help open airways and improve cough, wheezing, and shortness of breath *Start steroid (Prednisone) tomorrow. Helps with inflammation therefore, cough and wheezing. Follow directions on the package. Reviewed side effects. Patient reports taking them before. Do your breathing treatments as you was advised by your Family Doctor Follow up IMMEDIATELY for new or worsening of symptoms OR no noticeable improvement over the next 48-72 hours. 911 immediately for any life threatening symptoms such as chest pain or difficulty breathing Clinical Impressions Clinical Impression: COPD exacerbation Instructions Patient Instructions: Chronic Obstructive Pulmonary Disease (Alternative Therapy), Chronic Obstructive Pulmonary Disease, COPD: When to Call for Help Discharge ED Provider: Shelli Jacobo [facility] General Stated complaint: sob Mode of Arrival: Ambulatory Source of Information: Patient Limitations: No Limitations Time Seen by Provider: 04/04/22 16:32 Description of Symptoms (Recalled from Triage Doc. by RN): PATIENT C/O COUGH AND SOA X 2 WEEKS HEENT Symptoms (Recalled from RN notes): No Resp Symptoms (Recalled from RN notes): Yes Skin Symptoms (Recalled from RN notes): No MS Symptoms (Recalled from RN notes): No Functional Status (Recalled from RN notes): WNL History of Present Illness Provider Complaint: Patient states that she has been having cough and SOA off and off for about 2 weeks States that she was seen in the ED a few days ago for something else but didnt say anything to them about her SOA States that she has COPD and she was worried she may be havi
[2022-04-04 16:57] VITALS: BP 136/87; PULSE 70; RESP 22; TEMP 36.6; O2SAT 94
== END 2022-04-04 17:14 | disposition home or self-care (01) ==
PROVIDERS: Emergency Provider Nurse Practitioner; PCP Emergency Medicine
DX: J44.1 Chronic obstructive pulmonary disease with (acute) exacerbation (principal)
CPT/HCPCS: 96372; 99212; 99213; G0463; J0696

== ENCOUNTER 2022-05-08 15:18 | Inpatient (IN) | payer MEDICARE, MEDICAID, SELFPAY ==
[2022-05-08] VITALS (18 sets, daily range): BP systolic 121–154; BP diastolic 74–103; PULSE 65–82; RESP 16–24; TEMP 36.8; O2SAT 85–94; BMI 32.9
--- NOTE | 2022-05-08 15:08 | ECG_ITS ---
APPROVED REPORT Exam: Resting ECG HR:76 bpm ECG Measurements Heart Rate 76 AXES AR 175 P 72 QRSd 121 QRS 41 QT 402 T 54 QTc 433 Conclusion SINUS RHYTHM MODERATE INTRAVENTRICULAR CONDUCTION DELAY [110+ ms QRS DURATION] BORDERLINE ECG UNCONFIRMED REPORT Electronically signed by : Sudhakar Mathew MD 05/08/2022 17:26:36
--- NOTE | 2022-05-08 15:26 | XR_ITS ---
FINAL REPORT CLINICAL HISTORY: shortness of breath COMPARISON: 04/01/2022 FINDINGS: PORTABLE CHEST The heart is normal in size. The mediastinum is unremarkable. There are mild chronic changes at the lung bases. There is no pneumothorax. IMPRESSION: No acute process. Reviewed, Interpreted and Dictated by Terrell Francis MD Transcribed by Emmy Rosa Authenticated and [facility]
[2022-05-08 15:42] LABS: Basophils # 0.1 K/mm3 (0-0.2); Basophils % 0.6 % (0.1-2.0); Eosinophils # 0.2 K/mm3 (0.0-0.4); Eosinophils % 1.9 % (0.1-12.0); Hematocrit 42.2 % (37.0-47.0); Hemoglobin 13.6 g/dL (12.2-16.2); Lymphocytes # 0.7 K/mm3 (0.7-4.5); Lymphocytes % 8.8 % (10-50); Mean Corpuscular HGB Conc 32.2 g/dL (31.8-35.4); Mean Corpuscular Hemoglobin 30.6 pg (27.0-31.2); Mean Platelet Volume 8.7 fl (7.4-10.4); Monocytes # 0.2 K/mm3 (0.1-1.0); Monocytes % 2.6 % (1.7-9.3); Neutrophils # 7.1 K/mm3 (1.8-7.8); Neutrophils % 86.1 % (37.0-80.0); Platelet Count 190 K/mm3 (142-424); Red Blood Count 4.44 M/mm3 (4.20-5.40); Red Cell Distribution Width 13.4 % (11.5-17.5); White Blood Count 8.3 K/mm3 (4.8-10.8)
[2022-05-08 15:48] LABS: MANUAL DIFFERENTIAL MANUAL DIFFERENTIAL (MANUAL DIFF)
[2022-05-08 15:55] LABS: Lactic Acid 0.6 mmol/L (0.7-2.1)
[2022-05-08 15:57] LABS: Alanine Aminotransferase 12 U/L (12-78); Albumin Level 3.8 g/dl (3.5-5.0); Albumin/Globulin Ratio 1.5 (1.1-1.8); Alkaline Phosphatase 97 U/L (38-126); Anion Gap 5.9 mEq/L (5-15); Aspartate Amino Transferase 21 U/L (14-36); Bilirubin,Total 0.6 mg/dl (0.2-1.3); Blood Urea Nitrogen 11 mg/dl (7-17); Calcium 8.6 mg/dl (8.4-10.2); Carbon Dioxide 30 mmol/L (22.0-30.0); Chloride 110 mmol/L (98-107); Creatinine Clearance Estimated 89 mL/min (50-200); Estimated Glomerular Filt Rate 65 ml/min (>60); GFR (African American) 78 ML/MIN (>60); Globulin 2.6 g/dL (1.3-3.2); Glucose 101 mg/dl (74-100); Potassium 3.9 mmoL/L (3.5-5.1); Sodium 142 mmol/L (136-145); Total Protein,Serum 6.4 g/dl (6.3-8.2)
--- NOTE | 2022-05-08 15:57 | HMH.EDGENADL ---
Discharge Plan Disposition Patient Disposition: Admitted as Observation Condition: Fair Prescriptions Prescriptions: No Action lisinopril 20 mg tablet 20 mg PO DAILY Qty: 30 2RF fluticasone propionate [Flonase Allergy Relief] 50 mcg/actuation spray,suspension 1 spray intranasal DAILY Qty: 16 2RF Rx Instructions: administer into each nostril nicotine 21 mg/24 hr patch 24 hour 1 patch transdermal DAILY Qty: 28 2RF trazodone 50 mg tablet 50 mg PO HS Qty: 30 2RF acetaminophen-codeine 300-30 mg tablet 1 tab PO BID Qty: 60 2RF ipratropium-albuterol 20-100 mcg/actuation mist 1 puff IH QID Qty: 4 1RF albuterol sulfate 90 mcg/actuation HFA aerosol inhaler See Rx Instructions .ROUTE .COMPLEX Qty: 18 2RF Dose Instruction: INHALE 1 PUFF BY MOUTH EVERY 4 TO 6 HOURS NEEDED FOR COPD Rx Instructions: INHALE 1 PUFF BY MOUTH EVERY 4 TO 6 HOURS NEEDED FOR COPD nystatin 100,000 unit/gram cream 1 applic topical TID Qty: 30 0RF ipratropium-albuterol 0.5 mg-3 mg(2.5 mg base)/3 mL solution for nebulization See Rx Instructions .ROUTE .COMPLEX Qty: 180 3RF Dose Instruction: INHALE CONTENTS OF 1 VIAL VIA NEBULIZER FOUR TIMES A DAY NEEDED FOR SHORTNESS OF BREATH OR WHEEZING Rx Instructions: INHALE CONTENTS OF 1 VIAL VIA NEBULIZER FOUR TIMES A DAY NEEDED FOR SHORTNESS OF BREATH OR WHEEZING [id number] [Fioricet] 50-300-40 mg capsule 1 cap PO DAILY Qty: 30 0RF fluticasone propionate 100 mcg/actuation Blister With Device 1 inh INHALATION BID Spiriva with HandiHaler 18 mcg Capsule, W/Inhalation Device 1 cap INHALATION DAILY Rx Instructions: puncture 1 cap using device; one dose = 2 inhalations buprenorphine-naloxone [Suboxone] 8-2 mg Film 1 film BUCCAL BID buspirone 10 mg tablet 10 mg PO BID calcium polycarbophil [FiberCon] 625 mg tablet 1,250 mg PO DAILY estradiol 1 mg tablet 1 mg PO DAILY Referrals Follow up/Referrals: Provider,Referral, MD [Referring] - See instructions Clinical Impressions Clinical Impression: Acute exacerbation of chronic obstructive pulmonary disease, Acute and chronic respiratory failure with hypoxia Discharge ED Provider: Sebastian Salamanca General Adult HPI General Chief complaint: Shortness of Breath/Dyspnea Stated complaint: Shortness of Breath Time Seen by Provider: 05/08/22 16:44 Mode of Arrival: EMS Source of Information: Patient Limitations: No Limitations Description of Symptoms (Recalled from ER Triage Doc. by RN): pt reports increased shortness of breath since last night, states she has a history of COPD and stays short of air, denies cough, normally on 2L NC at home but has had it up to 3L today History of Present Illness HPI narrative: The patient is brought in by ambulance. She complains of shortness of breath since last night. States that she has been having oxygen saturation drop when she gets up and moves around. As low as in the 70s today. She has COPD and is on oxygen at home, 2 L nasal cannula. However since yesterday evening she has increased it to 3 L. Denies cough or chest pain. Denies fever. States that she had several teeth removed yesterday by the dentist. She was started on antibiotics. She says that she was prescribed ibuprofen for pain. However, also says that she has some other pain medication prescribed by Dr. Mendez as well. She does not know the name of it. Review of her medication list shows that she was prescribed amoxicillin and ibuprofen yesterday. She has not had any recent steroids prescribed by Dr. Mendez that I can see. She is also on Suboxone. She is a smoker who is trying to quit. Related Data Home Medications Medication Instructions Recorded Confirmed buprenorphine 8 mg-naloxone 2 mg 1 film buccal BID addiction 02/10/22 04/25/22 sublingual film (Suboxone) buspirone 10 mg tablet 10 mg PO BID Anxiety 11
[2022-05-08 16:08] LABS: Coronavirus 19, PCR Not Detected (NotDetected); Influenza A, PCR Not Detected (NotDetected); Influenza B, PCR Not Detected (NotDetected)
[2022-05-08 16:27] LABS: Hypochromasia 2+; Lymphocytes % 12 % (10-50); Monocytes % 3 % (2-9); Neutrophils % 85 % (42-76); Platelet Estimate Normal; Total Cells Counted 100
--- NOTE | 2022-05-08 16:51 | PC.NURSE ---
ER AT BEDSIDE
--- NOTE | 2022-05-08 17:56 | PC.NURSE ---
RT aware of ABG.
--- NOTE | 2022-05-08 18:02 | PC.NURSE ---
RT AT BEDSIDE.
[2022-05-08 18:10] LABS: ABG Base Excess 0.4 mmol/L (-2.4-2.3); ABG HCO3 25.5 mmhg (22.0-26.0); ABG Oxygen Saturation 88 % (90-100); ABG PCO2 44.1 mmhg (35.0-45.0); ABG PH 7.38 mmol/L (7.35-7.45); ABG TCO2 26.9 mmhg (23-27)
[2022-05-08 18:11] LABS: Allen's Test Acceptable; Oxygen 2.5LPM %
[2022-05-08 18:12] LABS: Source Left Radial
[2022-05-08 18:13] LABS: ABG PO2 49.8 mmhg (80-100)
--- NOTE | 2022-05-08 18:58 | PC.NURSE ---
Pt ambulatory to bathroom. Upon exertion pt O2 sats dropped to low 80s.
--- NOTE | 2022-05-08 19:32 | PC.NURSE ---
on the phone with hospitalist for pt admission
[2022-05-08 19:50] LABS: D-Dimer 0.68 ug/mL (0.0-0.5)
[2022-05-08 19:56] LABS: NT Pro Brain Natriuretic Pep. 236 pg/mL (0-125)
--- NOTE | 2022-05-08 20:16 | CT_ITS ---
PROCEDURE INFORMATION: Exam: CTA Chest With Contrast Exam date and time: 05/08/2022 8:45 PM Age: 56 years old Clinical indication: Abnormal findings; Abnormal diagnostic tests; Elevated d-dimer; Additional info: Elevated d-dimer, hypoxemia TECHNIQUE: Imaging protocol: Computed tomographic angiography of the chest with contrast. 3D rendering (Not supervised by radiologist): MIP and/or 3D reconstructed images were created by the technologist. Radiation optimization: All CT scans at this facility use at least one of these dose optimization techniques: automated exposure control; mA and/or kV adjustment per patient size (includes targeted exams where dose is matched to clinical indication); or iterative reconstruction. Contrast material: ISOVUE; Contrast volume: 70 ml; Contrast route: INTRAVENOUS (IV); Other protocol: This patient has received 0 known CTs and 0 known cardiac nuclear medicine studies in the 12 months prior to the current study. COMPARISON: CR XR CHEST PORTABLE 05/08/2022 3:45 PM FINDINGS: Pulmonary arteries: Normal. No pulmonary emboli. Aorta: The aorta demonstrates mild atherosclerotic disease. Lungs: Mild scarring and atelectasis in the lower lungs. Secretions in airways with lower lung zone predominance may represent atypical infection, smoking related lung injury, or aspiration. Pleural spaces: Trace right pleural effusion. Heart: Upper limits of normal heart size. Lymph nodes: Unremarkable. No enlarged lymph nodes. Intraperitoneal space: Small amount of ascites in the upper abdomen of indeterminate significance. Bones/joints: Unremarkable. No acute fracture. Soft tissues: Unremarkable. Other findings: Stigmata of old granulomatous disease. IMPRESSION: 1. No acute findings. 2. Secretions in airways with lower lung zone predominance may represent atypical infection, smoking related lung injury, or aspiration. 3. Small amount of ascites in the upper abdomen of indeterminate significance.
--- NOTE | 2022-05-08 20:41 | PC.NURSE ---
Pt gone to RAD via stretcher
--- NOTE | 2022-05-08 22:21 | EXP.HP ---
History of Present Illness *Admission Date: 05/08/22 *Reason for visit:: Shortness of air *History of present illness: Ms. Traylor is a 56-year-old female with a past medical history of COPD, home oxygen dependent at 2L, history of chronic tobacco use reports 1.5 ppd x 25 years, just recently trying to quit and chronic opioid use on Suboxone. She presents with a 1-day history of worsening shortness of air outside her normal and decreased oxygen saturations at home. She reports that the day prior to that she underwent teeth extraction and the next day became very short of air which prompted her ER visit today. In the ER on ABG she was noted to have a pO2 of 44.1 with a SpO2 of 88 on 2.5L. Covid and Flu were negative. CTA performed of the chest showed Secretions into the airways in the lower lung zones. Cultures were drawn and she was placed on empiric antibiotics. She does report that her COPD was diagnosed by Spirometry approximately 4-5 years ago by a Claims Support Specialist in the [facility], but she denies seeing a Claims Support Specialist since that time. The patient will be admitted with initial impression: Acute Hypoxic Respiratory Failure and Pneumonia. There is a concern for Aspiration given the patient's history. Cultures have been ordered and broad spectrum antibiotics have been started. She will be monitored on telemetry overnight. Oxygen will be titrated to keep SpO2 >88%. Pulmonary will be consulted for the am. The plan of care was discussed with the patient in length and detail at bedside on admission. She verbalized understanding and agreement with the plan of care. [facility] Disclaimer: The information contained in this section may have been updated after the patient was seen, as this information can be updated by other users. Medical History (Updated 05/08/22 @ 22:42 by Michael Cervantes DNP) Anxiety COPD (chronic obstructive pulmonary disease) Hot flashes due to menopause Opioid dependence Surgical History History of section History of hysterectomy Family History Other No significant family history Social History Smoking Status: Current every day smoker tobacco type: cigarettes packs per day: 1 pack-years: 45 years smoked: 45 alcohol intake: never substance use type: denies use counseling provided: support program and treatment program current occupational status: unemployed Travel in the last 8 weeks: None adopted: Yes caregiver/support person: No foster care: No housing: house lives independently: Yes marital status: special blanca needs: No agree to transfusion: No do you feel safe at home: Yes victim of physical abuse: No victim of emotional abuse: No victim of sexual abuse: No would you like helpful sources: No Review of Systems Review of Systems Review of systems:: pertinent systems reviewed and negative unless documented below Constitutional Constitutional: Denies headache(s) and Denies weakness Eyes Eyes: Reports system reviewed and no additional complaints, except as documented ENT Ears, Nose, Mouth, and Throat: Reports system reviewed and no additional complaints, except as documented and Denies headache(s) *Cardiovascular Cardiovascular: Reports system reviewed and no additional complaints, except as documented, Reports dyspnea and Reports dyspnea on exertion *Respiratory Respiratory: Reports dyspnea and Reports dyspnea on exertion *Gastrointestinal Gastrointestinal: Reports system reviewed and no additional complaints, except as documented *Genitourinary Genitourinary: Reports system reviewed and no additional complaints, except as documented *Musculoskeletal Musculoskeletal: Denies numbness Integumentary/Breasts Skin/Breast: Reports system reviewed and no additional
--- NOTE | 2022-05-08 22:39 | PC.NURSE ---
Pt arrived to the floor via stretcher @ [id number].
[2022-05-08 22:44] LABS: Procalcitonin 0.051 ng/mL (0.0-2.0)
[2022-05-09] VITALS (10 sets, daily range): BP systolic 127–160; BP diastolic 75–103; PULSE 68–98; RESP 16–24; TEMP 36.5–36.9; O2SAT 89–95; BMI 32.6; BMI 33.0
--- NOTE | 2022-05-09 05:28 | PC.NURSE ---
pt admitted this shift, no changes from previous assessment, lung sounds with audible wheezing, 02 at 4L pnc with sats 90-93%; generalized edema, vss, pt is alert and oriented x4, no acute distress.
--- NOTE | 2022-05-09 07:00 | CA_ITS ---
APPROVED REPORT EXAM: Comprehensive 2D, Doppler, and color-flow Echocardiogram City Planning Aide: Darcie Jackman RDCS Ht: 5 ft 2 in Wt: 180lbs BSA: 1.83 BP: 136/84 mmHg Indications: SOA RESP FAILURE 2D Dimensions LVOT 2.17 cm (M/F) 1.5-2.5 M-Mode Dimensions RVDd 3.15 cm (0.9-2.6) LA Diam 3.16 cm (1.9-4.0) LVDd 4.71 cm (3.5-5.7) Ao Diam 3.05 cm (2.0-3.7) LVDs 3.34 cm (3.5-5.7) IVSd 1.10 cm (0.6-1.1) PWd 1.29 cm (0.6-1.1) EF (Teich) 55.90% FS 29.10% EDV (Teich) 102.90 mL TAPSE 3.09 (<1.7) ESV (Teich) 45.40 mL LV Diastology E Decel Time 247.00 (160-240 msec) E/A Ratio 1.2 MED E' 11.60 (< 7 cm/sec) E'/MED E' Ratio 7.07 (>14) LAT E' 11.50 (<10 cm/sec) E/LAT E' Ratio 7.13 (>14) Mitral Valve MV E Max Kosta. 82.00 (40-130 cm/s) MV A Velocity 67.00 (40-130 cm/s) E/A Ratio 1.22 MV Decel. Time 247.00 (160-240 ms) MV PHT 72.00 ms Left Ventricle Left atrium is normal size, left ventricle is normal size, estimated ejection fraction of 55% with no regional wall motion abnormality, diastolic parameters are within normal range. Right Ventricle Right atrium and right ventricle are normal size and contractility. Aortic Valve Aortic valve is grossly normal there is no aortic stenosis or aortic insufficiency. Mitral Valve Mitral valve grossly normal, there is trace mitral regurgitation. Tricuspid Valve Tricuspid valve grossly normal, there is trace tricuspid regurgitation, tricuspid regurgitation jet plus is inadequate for calculation of the right ventricular systolic pressure. Pulmonic Valve Pulmonic valve is poorly visualized. Great Vessels Aortic root is normal size. Inferior vena cava is normal size with normal inspiratory collapse. Pericardium No significant pericardial effusion noted. Conclusion 1. Normal left ventricular size please allow ventricular systolic function, estimated ejection fraction of 55% with no regional wall motion abnormality, diastolic parameters are within normal range. 2. Trace mitral and tricuspid regurgitation. 3. No significant pericardial effusion noted. 4. Inferior vena cava is normal size with normal inspiratory collapse. Electronically signed by : Colin Butler MD 05/09/2022 18:30:43
--- NOTE | 2022-05-09 08:23 | EXP.PHA.CONS ---
Pharmacy Consult Date: 05/09/22 Time: 08:23 Referring provider: DR FUNEZ Reason for Consult:: VANCOMYCIN DOSING CONSULT Allergies Allergy/AdvReac Type Severity Reaction Status Date / Time No Known Allergies Allergy Verified 04/25/22 15:29 Home Medications Medication Instructions Recorded Confirmed Type buprenorphine 8 mg-naloxone 2 mg 1 film buccal BID addiction 02/10/22 05/08/22 History sublingual film (Suboxone) fluticasone propionate 100 1 inh inhalation BID COPD 02/10/22 05/08/22 History mcg/actuation blister powder for inhalation ipratropium 20 mcg-albuterol 100 1 puff inhalation QID COPD #4 grams 03/17/22 05/08/22 Rx mcg/actuation mist for inhalation estradiol 1 mg tablet 1 mg PO DAILY homones 04/01/22 05/08/22 History albuterol sulfate 90 mcg/actuation See Rx Instructions .Route 05/08/22 05/08/22 History aerosol inhaler .COMPLEX Breathing problems amoxicillin 500 mg capsule 500 mg PO TID Infection 05/08/22 05/08/22 History crxdqfazvg-zuvzhvwzewhxn-ptekgelv 1 cap PO DAILY Headache 05/08/22 05/08/22 History 50 mg-300 mg-40 mg capsule (Fioricet) fluticasone propionate 50 1 spray intranasal DAILY PRN 05/08/22 05/08/22 History mcg/actuation nasal allergies spray,suspension (Flonase Allergy Relief) ibuprofen 800 mg tablet 800 mg PO TID Pain 05/08/22 05/08/22 History ipratropium 0.5 mg-albuterol 3 mg See Rx Instructions .Route 05/08/22 05/08/22 History (2.5 mg base)/3 mL nebulization .COMPLEX Breathing problems soln lisinopril 20 mg tablet 20 mg PO DAILY High blood pressure 05/08/22 05/08/22 History nicotine 21 mg/24 hr daily 1 patch transdermal DAILY smoking 05/08/22 05/08/22 History transdermal patch prednisone 10 mg tablet 10 mg PO DAILY Pain 05/08/22 05/08/22 History trazodone 50 mg tablet 50 mg PO HS sleep 05/08/22 05/08/22 History New Prescriptions to Start Prescriptions: Height: 1.57 m Weight: 81.601 kg Laboratory Results:: Laboratory Results - last 24 hr 05/08/22 15:30: WBC 8.3, RBC 4.44, Hgb 13.6, Hct 42.2, MCV 95.0, MCH 30.6, MCHC 32.2, RDW 13.4, Plt Count 190, MPV 8.7, Neut % (Auto) 86.1 H, Lymph % (Auto) 8.8 L, [place] % (Auto) 2.6, Eos % (Auto) 1.9, Baso % (Auto) 0.6, Neut # (Auto) 7.1, Lymph # (Auto) 0.7, [place] # (Auto) 0.2, Eos # (Auto) 0.2, Baso # (Auto) 0.1, Total Counted 100, Neutrophils % (Manual) 85 H, Lymphocytes % (Manual) 12, Monocytes % (Manual) 3, Platelet Estimate Normal, Hypochromasia 2+ 05/08/22 15:30: Sodium 142, Potassium 3.9, Chloride 110 H, Carbon Dioxide 30, Anion Gap 5.9, BUN 11, Creatinine 0.90, Estimated Creat Clear 89, Estimated GFR 65, Est GFR ( Amer) 78, Glucose 101 H, Calcium 8.6, Total Bilirubin 0.6, AST 21, ALT 12, Alkaline Phosphatase 97, Total Protein 6.4, Albumin 3.8, Globulin 2.6, Albumin/Globulin Ratio 1.5 05/08/22 15:30: Lactate 0.6 L 05/08/22 15:30: SARS-CoV-2 (PCR) Not detected, Influenza A Untype (PCR) Not detected, Influenza Type B (PCR) Not detected 05/08/22 15:30: D-Dimer 0.68 H 05/08/22 15:30: NT-Pro-B Natriuret Pep 236 H 05/08/22 15:30: Procalcitonin 0.051 05/08/22 16:53: Specimen Source Left radial, O2 % 2.5lpm, ABG pH 7.38, ABG pCO2 44.1, ABG pO2 49.8 L, ABG HCO3 25.5, ABG Total CO2 26.9, ABG O2 Saturation 88 L, ABG Base Excess 0.4, Alfred Test Acceptable Medical History: Medical History (Updated 05/08/22 @ 22:42 by Michael Cervantes DNP) Anxiety COPD (chronic obstructive pulmonary disease) Hot flashes due to menopause Opioid dependence Assessment and Plan Assessment and plan all Dx Assessment and Plan for all problems:: Pharmacokinetic dosing service Objective: Age: 56 yo Serum creatinine: 0.9 mg/dL Height: 61.8 Inches Weight (kg): 81.601 Diagnosis: PNEUMONIA Assessment: IBW (kg): 49.64 Dosing wt(kg): 81.601 Estimated Creatinine clearance (ml/min): 54.0 CRCL method: Cockcroft and Gault
--- NOTE | 2022-05-09 08:38 | EXP.PN ---
Subjective *Date: 05/09/22 *Time: 17:19 Interval history: Date of service May 09, 2022 Nursing staff report that the patient remains afebrile with stable vital signs and saturating appropriately on 4 L of oxygen via nasal cannula. She is ambulating in her room and back and forth to the bathroom with no difficulty. Her usual home oxygen requirement is 2 L. She is tolerating her therapy well with no adverse events and reports improvement. We have reviewed and discussed her morning labs. I have personally interpreted her labs and imaging as follows: CBC with normal white blood cell count and hemoglobin at 13.6 with normal platelet count. Her electrolytes are normal her BUN is 11 and creatinine 0.9. Her glucose is stable under 150. Her procalcitonin is negative. An initial chest x-ray identified no acute disease and a follow-up CTA of the chest identified bilateral lower lobe aspiration concerns. Pulmonology is due to see the patient. Exam Data for Last 24 hours Vital signs and Labs for Last 24 Hours: Temp Pulse Resp BP Pulse Ox 97.9 F 69 18 160/92 H 89 L 05/09/22 04:00 05/09/22 06:14 05/09/22 04:00 05/09/22 04:00 05/09/22 06:14 Laboratory Results - last 24 hr 05/08/22 15:30: WBC 8.3, RBC 4.44, Hgb 13.6, Hct 42.2, MCV 95.0, MCH 30.6, MCHC 32.2, RDW 13.4, Plt Count 190, MPV 8.7, Neut % (Auto) 86.1 H, Lymph % (Auto) 8.8 L, [place] % (Auto) 2.6, Eos % (Auto) 1.9, Baso % (Auto) 0.6, Neut # (Auto) 7.1, Lymph # (Auto) 0.7, [place] # (Auto) 0.2, Eos # (Auto) 0.2, Baso # (Auto) 0.1, Total Counted 100, Neutrophils % (Manual) 85 H, Lymphocytes % (Manual) 12, Monocytes % (Manual) 3, Platelet Estimate Normal, Hypochromasia 2+ 05/08/22 15:30: Sodium 142, Potassium 3.9, Chloride 110 H, Carbon Dioxide 30, Anion Gap 5.9, BUN 11, Creatinine 0.90, Estimated Creat Clear 89, Estimated GFR 65, Est GFR ( Amer) 78, Glucose 101 H, Calcium 8.6, Total Bilirubin 0.6, AST 21, ALT 12, Alkaline Phosphatase 97, Total Protein 6.4, Albumin 3.8, Globulin 2.6, Albumin/Globulin Ratio 1.5 05/08/22 15:30: Lactate 0.6 L 05/08/22 15:30: SARS-CoV-2 (PCR) Not detected, Influenza A Untype (PCR) Not detected, Influenza Type B (PCR) Not detected 05/08/22 15:30: D-Dimer 0.68 H 05/08/22 15:30: NT-Pro-B Natriuret Pep 236 H 05/08/22 15:30: Procalcitonin 0.051 05/08/22 16:53: Specimen Source Left radial, O2 % 2.5lpm, ABG pH 7.38, ABG pCO2 44.1, ABG pO2 49.8 L, ABG HCO3 25.5, ABG Total CO2 26.9, ABG O2 Saturation 88 L, ABG Base Excess 0.4, Alfred Test Acceptable I & O for Last 24 hours: Intake & Output 05/06/22 05/07/22 05/08/22 05/09/22 23:59 23:59 23:59 23:59 Intake Total 350 / 350 Output Total 0 / 0 0 / 0 Balance 0 / 350 350 / 350 Weight 81.647 kg 81.601 kg Constitutional Constitutional: no acute distress, obese and cooperative *Routine HEENT Exam Head: Present normocephalic Eye: Present EOMI and PERRL ENT: Present mucous membranes moist *Routine Neck Exam Neck: Present supple, full ROM and trachea midline; Absent lymphadenopathy *Routine Respiratory Exam Respiratory: Present rhonchi, wheezes, normal respiratory effort and symmetric chest movement *Routine Cardiovascular Exam Cardiovascular: Present RRR *Routine Abdominal Exam Abdominal: Present soft and normoactive bowel sounds; Absent tenderness *Routine Extremities Exam Extremities: Present full ROM, pulses intact and normal capillary refill; Absent cyanosis, clubbing or edema *Routine Skin Exam Skin: Present warm; Absent rash *Routine Neurological Exam Neurological: Present alert, oriented X3, moving all extremities, normal tone, vision grossly intact, hearing grossly intact and normal speech Routine Psychiatric Exam Psychiatric: Present normal affect, normal thought process, cooperative, good insight and good judgment Assessment and Plan *Assessment and plan (1) Acute and chronic respiratory failure with hypoxia: Status: Acute Category: Medical Code(s): J96.21 - Acute
--- NOTE | 2022-05-09 09:23 | EXP.PULM.CON ---
History of Present Illness History of present illness: Ms. 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 Denies any known sick contacts. [facility] Disclaimer: The information contained in this section may have been updated after the patient was seen, as this information can be updated by other users. Medical History (Updated 05/09/22 @ 12:09 by Keira Lozano MD) Acute and chronic respiratory failure with hypoxia Anxiety Community acquired pneumonia COPD (chronic obstructive pulmonary disease) Hot flashes due to menopause Opioid dependence Surgical History History of section History of hysterectomy Family History Other No significant family history Social History (Updated 05/08/22 @ 23:32 by Alpa Bright RN) Smoking Status: Current every day smoker tobacco type: cigarettes packs per day: 1 pack-years: 44 smoking status start date: 15 years old years smoked: 44 quit status: has quit before alcohol intake: never substance use type: denies use and former substance user counseling provided: support program and treatment program current occupational status: unemployed Travel in the last 8 weeks: None adopted: Yes caregiver/support person: No foster care: No household members: significant other and children housing: house lives independently: Yes marital status: education level: college pets and animals: Yes (dog) pets and animals: dog(s) special blanca needs: No agree to transfusion: No do you feel safe at home: Yes victim of physical abuse: No victim of emotional abuse: No victim of sexual abuse: No would you like helpful sources: No Review of Systems Constitutional Constitutional: Denies headache(s) and Denies weakness ENT Ears, Nose, Mouth, and Throat: Denies headache(s) *Musculoskeletal Musculoskeletal: Denies numbness *Neurologic Neurologic: Denies headache(s), Denies numbness and Denies weakness Pulmonology Exam Inpatient Vital signs and Labs for Last 24 Hours: Temp Pulse Resp BP Pulse Ox 97.7 F 96 H 22 127/78 89 L 05/09/22 08:00 05/09/22 08:00 05/09/22 08:00 05/09/22 08:00 05/09/22 08:00 Laboratory Results - last 24 hr 05/08/22 15:30: WBC 8.3, RBC 4.44, Hgb 13.6, Hct 42.2, MCV 95.0, MCH 30.6, MCHC 32.2, RDW 13.4, Plt Count 190, MPV 8.7, Neut % (Auto) 86.1 H, Lymph % (Auto) 8.8 L, [place] % (Auto) 2.6, Eos % (Auto) 1.9, Baso % (Auto) 0.6, Neut # (Auto) 7.1, Lymph # (Auto) 0.7, [place] # (Auto) 0.2, Eos # (Auto) 0.2, Baso # (Auto) 0.1, Total Counted 100, Neutrophils % (Manual) 85 H, Lymphocytes % (Manual) 12, Monocytes % (Manual) 3, Platelet Estimate Normal, Hypochromasia 2+ 05/08/22 15:30: Sodium 142, Potassium 3.9, Chloride 110 H, Carbon Dioxide 30, Anion Gap 5.9, BUN 11, Creatinine 0.90, Estimated Creat Clear 89, Estimated GFR 65, Est GFR ( Amer) 78, Glucose 101 H, Calcium 8.6, Total Bilirubin 0.6, AST 21, ALT 12, Alkaline Phosphatase 97, Total Protein 6.4, Albumin 3.8, Globulin 2.6, Albumin/Globulin Ratio 1.5 05/08/22 15:30: Lactate 0.6 L 05/08/22 15:30: SARS-CoV-2 (PCR) Not detected, Influenza A Untype (PCR) Not detected, Influenza Type B (PCR) Not detected 05/08/22 15:30: D-Dimer 0.68 H 05/08/22 15:30: NT-Pro-B Natriuret Pep 236 H 05/08/22 15:30: Procalcitonin 0.051 05/08/22 16:53: Specimen Source Left radial, O2 % 2.5lpm, ABG pH 7.38, ABG pCO2 44.1, ABG pO2 49.8 L, ABG HCO3 25.5, ABG Total CO2 26.9, ABG O2 Saturation 88 L, ABG Base Excess 0.4, Alfred Test Acceptable I & O for Labs for Last 24 Hours: Intake & Output 05/06/22 05/07/22 05/08/22 05/09/22 23
--- NOTE | 2022-05-09 10:01 | HMH.PHAINT1 ---
Pharmacy Intervention Comments: MEDICATION RECONCILIATION COMPLETED ON PATIENT USING EXTERNAL FILL HISTORY FROM PHARMACY AND SB REPORT. -[facility], YAIRD
--- NOTE | 2022-05-09 13:26 | PC.NURSE ---
Patient's oxygen saturation was 87% on room air after walking from the bathroom to bed.
[2022-05-10] VITALS (15 sets, daily range): BP systolic 138–165; BP diastolic 89–98; PULSE 63–101; RESP 16–22; TEMP 36.6–37.1; O2SAT 90–98; BMI 34.2
--- NOTE | 2022-05-10 01:49 | PC.NURSE ---
PATIENT RESTING IN BED. 02 IN USE 4.5L/NC. 02 SAT 93%. COARSE WHEEZES AND CRACKLES NOTED BILAT. MOIST COUGH. 2+ PITTING EDEMA PRESENT IN BOTH LOWER LEGS. NO RESP DISTRESS. NAD.
--- NOTE | 2022-05-10 07:19 | EXP.PN ---
Subjective *Date: 05/10/22 *Time: 11:29 Interval history: Date of service May 10, 2022 The patient reports no acute events overnight. She reports that she is breathing better. She experienced some nausea last evening that resolved with IV antiemetics. She is tolerating her IV antibiotic with no adverse events. Her morning labs have been reviewed and discussed. I have personally interpreted her morning labs as follows: CBC with a normal white blood cell count 9.5, hemoglobin 12.9, hematocrit 40.7, platelet count 176,000. Her chemistry panel identifies normal electrolytes, BUN 18, creatinine 1.0, glucose trend is under 150. Exam Data for Last 24 hours Vital signs and Labs for Last 24 Hours: Temp Pulse Resp BP Pulse Ox 98.1 F 63 16 162/98 H 96 05/10/22 04:00 05/10/22 06:05 05/10/22 04:00 05/10/22 04:00 05/10/22 06:05 I & O for Last 24 hours: Intake & Output 05/07/22 05/08/22 05/09/22 05/10/22 23:59 23:59 23:59 23:59 Intake Total 1510 / 1510 100 / 100 Output Total 0 / 0 650 / 900 1350 / 1350 Balance 0 / 350 860 / 610 -1250 / -1250 Weight 81.647 kg 81.6 kg 84.323 kg Microbiology Reports for the Last 24 Hours: Microbiology 05/08/22 08:20 Sputum - Expectorated Sputum Gram Stain - Final Constitutional Constitutional: no acute distress, obese and cooperative *Routine HEENT Exam Head: Present normocephalic Eye: Present EOMI and PERRL ENT: Present mucous membranes moist *Routine Neck Exam Neck: Present supple, full ROM and trachea midline; Absent lymphadenopathy *Routine Respiratory Exam Respiratory: Present rhonchi, wheezes, normal respiratory effort and symmetric chest movement *Routine Cardiovascular Exam Cardiovascular: Present RRR *Routine Abdominal Exam Abdominal: Present soft and normoactive bowel sounds; Absent tenderness *Routine Extremities Exam Extremities: Present full ROM, pulses intact and normal capillary refill; Absent cyanosis, clubbing or edema *Routine Skin Exam Skin: Present warm; Absent rash *Routine Neurological Exam Neurological: Present alert, oriented X3, moving all extremities, normal tone, vision grossly intact, hearing grossly intact and normal speech Routine Psychiatric Exam Psychiatric: Present normal affect, normal thought process, cooperative, good insight and good judgment Assessment and Plan *Assessment and plan (1) Acute and chronic respiratory failure with hypoxia: Status: Acute Category: Medical Code(s): J96.21 - Acute and chronic respiratory failure with hypoxia (2) Pneumonia: Status: Acute Category: Medical Code(s): J18.9 - Pneumonia, unspecified organism (3) Acute heart failure with preserved ejection fraction (HFpEF): Status: Acute Category: Medical Code(s): I50.31 - Acute diastolic (congestive) heart failure (4) Anxiety: Status: Acute Category: Medical Code(s): F41.9 - Anxiety disorder, unspecified (5) Tobacco abuse: Status: Acute Category: Medical Code(s): Z72.0 - Tobacco use (6) Opioid dependence: Status: Acute Category: Medical Code(s): F11.20 - Opioid dependence, uncomplicated Plan 56-year-old female with COPD, on home oxygen at 2L, chronic tobacco use and Opioid Dependence presents with shortness of air outside her normal limits and low oxygen saturations in the home following a tooth extraction procedure. Problems addressed are as follows: Acute on Chronic Respiratory Failure with Hypoxia Pulse oximetry monitoring Oxygen therapy to maintain appropriate oxygen saturations Currently requiring 4-5 L of oxygen via nasal cannula (usual home requirement is 2 L) Mirna/Kary inhalation therapy ICS therapy Prednisone therapy Trending labs and inflammatory markers Pulmonology consult Pneumonia Oxygen therapy Inhalation therapy CT of the chest shows secretions into the airways in the lower lung zones Dental procedure
[2022-05-10 09:01] LABS: Basophils # 0.1 K/mm3 (0-0.2); Basophils % 1.2 % (0.1-2.0); Eosinophils # 0.1 K/mm3 (0.0-0.4); Eosinophils % 1.2 % (0.1-12.0); Hematocrit 40.7 % (37.0-47.0); Hemoglobin 12.9 g/dL (12.2-16.2); Lymphocytes # 1.4 K/mm3 (0.7-4.5); Lymphocytes % 14.6 % (10-50); Mean Corpuscular HGB Conc 31.7 g/dL (31.8-35.4); Mean Corpuscular Hemoglobin 30.5 pg (27.0-31.2); Mean Corpuscular Volume 96.2 fl (81-99); Mean Platelet Volume 9.4 fl (7.4-10.4); Monocytes # 0.3 K/mm3 (0.1-1.0); Monocytes % 3.4 % (1.7-9.3); Neutrophils # 7.6 K/mm3 (1.8-7.8); Neutrophils % 79.7 % (37.0-80.0); Platelet Count 176 K/mm3 (142-424); Red Blood Count 4.23 M/mm3 (4.20-5.40); Red Cell Distribution Width 13.3 % (11.5-17.5); White Blood Count 9.5 K/mm3 (4.8-10.8)
[2022-05-10 10:50] LABS: Anion Gap 8.1 mEq/L (5-15); Blood Urea Nitrogen 18 mg/dl (7-17); Calcium 8.3 mg/dl (8.4-10.2); Carbon Dioxide 30 mmol/L (22.0-30.0); Chloride 108 mmol/L (98-107); Creatinine Clearance Estimated 83 mL/min (50-200); Estimated Glomerular Filt Rate 57 ml/min (>60); GFR (African American) 69 ML/MIN (>60); Glucose 137 mg/dl (74-100); Potassium 4.1 mmoL/L (3.5-5.1); Sodium 142 mmol/L (136-145)
--- NOTE | 2022-05-10 18:53 | PC.NURSE ---
Patient weaned to 3LNC with no complaints. VS stable. Lungs sounds expiratory wheezing and fine crackles. No other changes noted.
[2022-05-11] VITALS (15 sets, daily range): BP systolic 128–158; BP diastolic 82–100; PULSE 63–86; RESP 18; TEMP 36.6–37.2; O2SAT 93–99; BMI 33.9
--- NOTE | 2022-05-11 07:25 | EXP.PN ---
Subjective *Date: 05/11/22 *Time: 07:25 Interval history: Date of service May 11, 2022 The patient reports no acute events overnight. She reports that she is still requiring increased oxygen to maintain appropriate oxygen saturations. She has improved her ambulatory ability. Nursing staff report that she remains afebrile with stable vital signs and saturating on 4.5 L via nasal cannula. Exam Data for Last 24 hours Vital signs and Labs for Last 24 Hours: Temp Pulse Resp BP Pulse Ox 98.7 F 63 18 132/84 98 05/11/22 04:00 05/11/22 06:15 05/11/22 04:00 05/11/22 04:00 05/11/22 06:15 Laboratory Results - last 24 hr 05/10/22 08:26: WBC 9.5, RBC 4.23, Hgb 12.9, Hct 40.7, MCV 96.2, MCH 30.5, MCHC 31.7 L, RDW 13.3, Plt Count 176, MPV 9.4, Neut % (Auto) 79.7, Lymph % (Auto) 14.6, [place] % (Auto) 3.4, Eos % (Auto) 1.2, Baso % (Auto) 1.2, Neut # (Auto) 7.6, Lymph # (Auto) 1.4, [place] # (Auto) 0.3, Eos # (Auto) 0.1, Baso # (Auto) 0.1 05/10/22 10:34: Sodium 142, Potassium 4.1, Chloride 108 H, Carbon Dioxide 30, Anion Gap 8.1, BUN 18 H D, Creatinine 1.00, Estimated Creat Clear 83, Estimated GFR 57 L, Est GFR ( Amer) 69, Glucose 137 H, Calcium 8.3 L I & O for Last 24 hours: Intake & Output 05/08/22 05/09/22 05/10/22 05/11/22 23:59 23:59 23:59 23:59 Intake Total 1510 / 1510 2120 / 2120 Output Total 0 / 0 650 / 900 2850 / 3350 1100 / 1100 Balance 0 / 350 860 / 610 -730 / -1230 -1100 / -1100 Weight 81.647 kg 81.6 kg 84.323 kg 83.688 kg Microbiology Reports for the Last 24 Hours: Microbiology 05/08/22 08:20 Sputum - Expectorated Sputum Gram Stain - Final 05/08/22 08:20 Sputum - Expectorated Sputum Sputum Culture - Preliminary 05/08/22 15:30 Blood Blood Culture - Preliminary NO GROWTH AFTER 48 HOURS 05/08/22 15:30 Blood Blood Culture - Preliminary NO GROWTH AFTER 48 HOURS Constitutional Constitutional: no acute distress, obese and cooperative *Routine HEENT Exam Head: Present normocephalic Eye: Present EOMI and PERRL ENT: Present mucous membranes moist *Routine Neck Exam Neck: Present supple, full ROM and trachea midline; Absent lymphadenopathy *Routine Respiratory Exam Respiratory: Present rhonchi, wheezes, normal respiratory effort and symmetric chest movement *Routine Cardiovascular Exam Cardiovascular: Present RRR *Routine Abdominal Exam Abdominal: Present soft and normoactive bowel sounds; Absent tenderness *Routine Extremities Exam Extremities: Present full ROM, pulses intact and normal capillary refill; Absent cyanosis, clubbing or edema *Routine Skin Exam Skin: Present warm; Absent rash *Routine Neurological Exam Neurological: Present alert, oriented X3, moving all extremities, normal tone, vision grossly intact, hearing grossly intact and normal speech Routine Psychiatric Exam Psychiatric: Present normal affect, normal thought process, cooperative, good insight and good judgment Assessment and Plan *Assessment and plan (1) Acute and chronic respiratory failure with hypoxia: Status: Acute Category: Medical Code(s): J96.21 - Acute and chronic respiratory failure with hypoxia (2) Pneumonia: Status: Acute Category: Medical Code(s): J18.9 - Pneumonia, unspecified organism (3) Acute heart failure with preserved ejection fraction (HFpEF): Status: Acute Category: Medical Code(s): I50.31 - Acute diastolic (congestive) heart failure (4) Anxiety: Status: Acute Category: Medical Code(s): F41.9 - Anxiety disorder, unspecified (5) Tobacco abuse: Status: Acute Category: Medical Code(s): Z72.0 - Tobacco use (6) Opioid dependence: Status: Acute Category: Medical Code(s): F11.20 - Opioid dependence, uncomplicated Plan 56-year-old female with COPD, on home oxygen at 2L, chronic tobacco use and Opioid Dependence prese
--- NOTE | 2022-05-11 18:44 | PC.NURSE ---
Patient's oxygen weaned to 3LNC. Zofran given for nausea. VS stable. Lungs sounds expiratory wheezing and inspiratory rhonchi. No other changes noted.
--- NOTE | 2022-05-11 20:49 | PC.NURSE ---
NOTIFIED NURSE OF BLOOD PRESSURE.
[2022-05-12 02:00] VITALS: PULSE 75
[2022-05-12 02:01] VITALS: PULSE 70
[2022-05-12 04:00] VITALS: BP 154/99; PULSE 68; RESP 18; TEMP 37.1; O2SAT 98; BMI 35.2
[2022-05-12 06:35] VITALS: PULSE 64; PULSE 67; O2SAT 97
[2022-05-12 06:58] LABS: Basophils % 0.7 % (0.1-2.0); Eosinophils % 0.5 % (0.1-12.0); Hematocrit 38.8 % (37.0-47.0); Hemoglobin 12.5 g/dL (12.2-16.2); Lymphocytes # 1.7 K/mm3 (0.7-4.5); Lymphocytes % 29.6 % (10-50); Mean Corpuscular HGB Conc 32.3 g/dL (31.8-35.4); Mean Corpuscular Hemoglobin 30.5 pg (27.0-31.2); Mean Corpuscular Volume 94.6 fl (81-99); Mean Platelet Volume 8.4 fl (7.4-10.4); Monocytes # 0.4 K/mm3 (0.1-1.0); Monocytes % 6.9 % (1.7-9.3); Neutrophils # 3.6 K/mm3 (1.8-7.8); Neutrophils % 62.3 % (37.0-80.0); Platelet Count 208 K/mm3 (142-424); Red Cell Distribution Width 13.4 % (11.5-17.5); White Blood Count 5.7 K/mm3 (4.8-10.8)
[2022-05-12 07:20] LABS: Anion Gap 2.2 mEq/L (5-15); Blood Urea Nitrogen 15 mg/dl (7-17); Calcium 8.4 mg/dl (8.4-10.2); Carbon Dioxide 35 mmol/L (22.0-30.0); Chloride 106 mmol/L (98-107); Creatinine Clearance Estimated 94 mL/min (50-200); Estimated Glomerular Filt Rate 65 ml/min (>60); GFR (African American) 78 ML/MIN (>60); Glucose 85 mg/dl (74-100); Potassium 4.2 mmoL/L (3.5-5.1); Sodium 139 mmol/L (136-145)
[2022-05-12 08:00] VITALS: BP 157/97; PULSE 76; RESP 18; TEMP 36.9; O2SAT 96
--- NOTE | 2022-05-12 08:21 | EXP.DC.SUM ---
General Admission date:: 05/08/22 Discharge date: 05/12/22 HPI HPI HPI: Ms. Traylor is a 56-year-old female with a past medical history of COPD, home oxygen dependent at 2L, history of chronic tobacco use reports 1.5 ppd x 25 years, just recently trying to quit and chronic opioid use on Suboxone. She presents with a 1-day history of worsening shortness of air outside her normal and decreased oxygen saturations at home. She reports that the day prior to that she underwent teeth extraction and the next day became very short of air which prompted her ER visit today. In the ER on ABG she was noted to have a pO2 of 44.1 with a SpO2 of 88 on 2.5L. Covid and Flu were negative. CTA performed of the chest showed Secretions into the airways in the lower lung zones. Cultures were drawn and she was placed on empiric antibiotics. She does report that her COPD was diagnosed by Spirometry approximately 4-5 years ago by a Wind Commissioning Technician in the [facility], but she denies seeing a Wind Commissioning Technician since that time. The patient will be admitted with initial impression: Acute Hypoxic Respiratory Failure and Pneumonia. There is a concern for Aspiration given the patient's history. Cultures have been ordered and broad spectrum antibiotics have been started. She will be monitored on telemetry overnight. Oxygen will be titrated to keep SpO2 >88%. Pulmonary will be consulted for the am. The plan of care was discussed with the patient in length and detail at bedside on admission. She verbalized understanding and agreement with the plan of care. Hospital Course Hospital Course Hospital Course: The patient was admitted to the medical unit with routine pulse oximetry monitoring oxygen supplementation. She required higher than home dose oxygen requirements to maintain oxygen saturations. Blood cultures were acquired and she was started on broad-spectrum IV antibiotic therapy. Her blood cultures remain no growth to date and her IV antibiotic was transitioned to p.o. with good tolerance. Her laboratory studies and inflammatory markers were trended and identified improvement. They subsequently remained stable. An echocardiogram identified an ejection fraction of 55%. A CTA of the chest identified concerns with aspiration. She was ambulated and identified improved oxygen saturations on supplemental oxygen via nasal cannula. On discharge she required 3 L via nasal cannula and her home usual is 2 L. She was counseled on tobacco cessation. She identified improvement and inquired about discharge home. She will be discharged home with a short course of steroids and p.o. antibiotics to follow-up with her PCP in 1 week. I spent 35 minutes in [id number] time with the patient and nursing staff concerning the discharge process. We discussed the admitting diagnoses and hospital course. We discussed identified improvement and the patient's desire to be discharged. We reviewed inpatient studies and imaging. The patient voiced understanding on the importance of follow-up with her primary care provider and pulmonology specialist(s). The patient plans to be compliant with the medication regimen prescribed and follow-up appointments. She understands the importance of tobacco cessation. She understands that she can return to the emergency department with any sudden changes or concerns. Exam Data for Last 24 hours Vital signs and Labs for Last 24 Hours: Temp Pulse Resp BP Pulse Ox FiO2 98.7 F 64 18 154/99 H 97 32 05/12/22 04:00 05/12/22 06:35 05/12/22 04:00 05/12/22 04:00 05/12/22 06:35 05/11/22 18:50 Laboratory Results - last 24 hr 05/12/22 06:35: WBC 5.7 D, RBC 4.10 L, Hgb 12.5, Hct 38.8, MCV 94.6, MCH 30.5, MCHC 32.3, RDW 13.4, Plt Count 208, MPV 8.4, Neut % (Auto) 62.3, Lymph % (Auto) 29.6, [place] % (Auto) 6.9, Eos % (Auto) 0.5, Baso % (Auto) 0.7, Neut # (Auto) 3.6, Lymph # (Auto) 1.7, [place] # (Auto) 0.4, Eos # (Auto) 0.0, Baso # (Auto) 0.0
--- NOTE | 2022-05-12 09:02 | HMH.PHAINT1 ---
Pharmacy Intervention Comments: Discussed discharge medications with patient. Patient verbalized understanding and had no questions at this time
--- NOTE | 2022-05-12 09:09 | PC.NURSE ---
RESP CARE NOTE: Pt placed on room air for 6 min walk test. Oxygen saturations decreased to 76% while patient standing at bedside. Oxygen replaced at 2 lpm nc, oxygen saturation back to 93%.
[2022-05-12 09:22] VITALS: PULSE 80
--- NOTE | 2022-05-12 09:31 | CARE MANAGER ---
Met with patient to discuss discharge planning needs. Patient previously set up with 2L continuous O2, which is what she will discharge home on. No other needs known at this time.
--- NOTE | 2022-05-12 09:58 | EXP.PULM.PN ---
Subjective *Date: 05/12/22 *Time: 09:58 Interval history: No acute respiratory vents over the weekend. Patient admits continued improvement in her symptoms. Pulmonology Exam Inpatient Vital signs and Labs for Last 24 Hours: Temp Pulse Resp BP Pulse Ox FiO2 98.5 F 80 18 157/97 H 96 32 05/12/22 08:00 05/12/22 09:22 05/12/22 08:00 05/12/22 08:00 05/12/22 08:00 05/11/22 18:50 Laboratory Results - last 24 hr 05/12/22 06:35: WBC 5.7 D, RBC 4.10 L, Hgb 12.5, Hct 38.8, MCV 94.6, MCH 30.5, MCHC 32.3, RDW 13.4, Plt Count 208, MPV 8.4, Neut % (Auto) 62.3, Lymph % (Auto) 29.6, [place] % (Auto) 6.9, Eos % (Auto) 0.5, Baso % (Auto) 0.7, Neut # (Auto) 3.6, Lymph # (Auto) 1.7, [place] # (Auto) 0.4, Eos # (Auto) 0.0, Baso # (Auto) 0.0 05/12/22 06:35: Sodium 139, Potassium 4.2, Chloride 106, Carbon Dioxide 35 H, Anion Gap 2.2 L, BUN 15, Creatinine 0.90, Estimated Creat Clear 94, Estimated GFR 65, Est GFR ( Amer) 78, Glucose 85, Calcium 8.4 I & O for Labs for Last 24 Hours: Intake & Output 05/09/22 05/10/22 05/11/22 05/12/22 23:59 23:59 23:59 23:59 Intake Total 1510 / 1510 2120 / 2120 1060 / 1060 240 / 240 Output Total 650 / 900 2850 / 3350 1700 / 1700 1200 / 1200 Balance 860 / 610 -730 / -1230 -640 / -640 -960 / -960 Weight 179 lb 14.355 oz 185 lb 14.4 oz 184 lb 8 oz 191 lb 3.2 oz Microbiology Reports for the Last 24 Hours: Microbiology 05/08/22 08:20 Sputum - Expectorated Sputum Gram Stain - Final 05/08/22 08:20 Sputum - Expectorated Sputum Sputum Culture - Final 05/08/22 08:20 Sputum - Expectorated Sputum - Final Not Reportable 05/08/22 08:20 Sputum - Expectorated Sputum - Final Not Reportable 05/08/22 08:20 Sputum - Expectorated Sputum - Final Not Reportable 05/08/22 08:20 Sputum - Expectorated Sputum - Final Not Reportable 05/08/22 08:20 Sputum - Expectorated Sputum - Final Not Reportable Constitutional: Present mild distress Head: Present normocephalic and atraumatic ENT: Present normal exam, normal oropharynx and mucous membranes moist Neck: Present normal inspection and full ROM Respiratory: Present wheezes and able to speak in complete sentences; Absent accessory muscle use, respiratory distress or crackles Cardiac: Present S1/S2, Tachycardia and radial pulses present GI: Present soft and distention; Absent tenderness or guarding Rectal (female): Present deferred (female): Present deferred Skin: Present intact; Absent cyanosis or jaundice Neuro: Present alert, awake and oriented x 3 Extremities: Present normal inspection; Absent clubbing or cyanosis Psychiatric: Present normal affect and cooperative Assessment and Plan *Assessment and plan (1) COPD exacerbation: Status: Acute Category: Medical Code(s): J44.1 - Chronic obstructive pulmonary disease with (acute) exacerbation (2) Community acquired pneumonia: Status: Acute Category: Medical Code(s): J18.9 - Pneumonia, unspecified organism (3) Acute and chronic respiratory failure with hypoxia: Status: Acute Category: Medical Code(s): J96.21 - Acute and chronic respiratory failure with hypoxia Plan 56-year-old history of COPD long-term oxygen therapy at 2 L at home presents with worsening respiratory distress found to be hypoxic in the ED needing ox supplementation pulmonary was called for further evaluation On 5 L nasal cannula. CTA reviewed, no evidence of pulm embolism. No dense airspace disease / consolidation noted. Bilateral lower lobe bronchial thickening noted. Patient was initiated on DuoNebs every 6 scheduled along with Unasyn for COPD exacerbation/community-acquired pneumonia. COVID-19 flu PCR negative. Patient admission diffuse bilateral wheezing, needing 5 L nasal cannula. Interval update: Continued improvement in h
[2022-05-13 15:37] LABS: Body Fluid Culture, Sterile Not indicated. (.); Legionella pneumophila Urinary Negative (Negative); Organism ID Not indicated. (.); Specimen Source Urine (.); Streptococcus pneumoniae Ag Negative (Negative)
[2022-05-13 23:06] LABS: MRSA DNA PCR NEGATIVE
--- NOTE | 2022-05-14 10:57 | CARE MANAGER ---
Spoke with patient related to hospital discharge. She picked up her medication and is aware of follow up appointments. Patient had questions regarding transportation to MD appointments. We discussed [employer] and she is already aware of them and their contact information. Denies any questions or concerns. EMEKA Hanley
== END 2022-05-12 12:45 | disposition home or self-care (01) | DRG 177 ==
LOC: ER 20:34 → 2ND 21:25
PROVIDERS: Nurse Practitioner Family; Admitting Provider Family Medicine; Emergency Provider Emergency Medicine; PCP Emergency Medicine; Visit Provider Family Medicine
DX: J69.0 Pneumonitis due to inhalation of food and vomit (principal); I50.31 Acute diastolic (congestive) heart failure; J96.21 Acute and chronic respiratory failure with hypoxia; J44.1 Chronic obstructive pulmonary disease with (acute) exacerbation; F11.20 Opioid dependence, uncomplicated; J44.0 Chronic obstructive pulmonary disease with (acute) lower respiratory infection; F17.210 Nicotine dependence, cigarettes, uncomplicated; I11.0 Hypertensive heart disease with heart failure; Z99.81 Dependence on supplemental oxygen; Z79.899 Other long term (current) drug therapy; F41.1 Generalized anxiety disorder
CPT/HCPCS: 36415; 71045; 71275; 80048; 80053; 82803; 83605; 83880; 84145; 85007; 85025; 85378; 87040; 87070; 87077; 87205; 87641; 87899; 93005; 93306; 94640; 94667; 94761; 99285; C9803; J0574; J2405; J2543; Q9967; U0003; U0005

== ENCOUNTER 2022-05-23 20:37 | Observation (INO) | payer MEDICARE, MEDICAID, SELFPAY ==
[2022-05-23] VITALS (7 sets, daily range): BP systolic 109–137; BP diastolic 71–82; PULSE 89–103; RESP 18–24; TEMP 37.2–39.1; O2SAT 91–98; BMI 32.9; BMI 30.3
--- NOTE | 2022-05-23 20:46 | ECG_ITS ---
APPROVED REPORT Exam: Resting ECG HR:103 bpm ECG Measurements Heart Rate [address] 158 P 67 QRSd 117 QRS 45 QT 333 T 62 QTc 393 Conclusion SINUS TACHYCARDIA MODERATE INTRAVENTRICULAR CONDUCTION DELAY [110+ ms QRS DURATION] NONSPECIFIC T-WAVE ABNORMALITY ABNORMAL RHYTHM ECG UNCONFIRMED REPORT Electronically signed by : Sudhakar Mathew MD 05/24/2022 20:00:57
--- NOTE | 2022-05-23 20:50 | PC.NURSE ---
Dr. Arguello at BS to evaluate pt
--- NOTE | 2022-05-23 20:58 | PC.NURSE ---
Patient gave a password [email or web address]. Pt requests only information be given to Daughter Robina, Son Radha and friend Summer.
--- NOTE | 2022-05-23 21:03 | XR_ITS ---
PROCEDURE INFORMATION: Exam: XR Chest Exam date and time: 05/23/2022 9:07 PM Age: 56 years old Clinical indication: Cough and fever; Additional info: Concern for pna, recent hospitalization TECHNIQUE: Imaging protocol: Radiologic exam of the chest. Views: 2 views. COMPARISON: CR XR CHEST PORTABLE 05/08/2022 3:45 PM FINDINGS: Lungs: Airspace disease in the right lower lobe findings concerning for pneumonia. Pleural spaces: Unremarkable. No pleural effusion. No pneumothorax. Heart/Mediastinum: Unremarkable. No cardiomegaly. Bones/joints: Unremarkable. IMPRESSION: Airspace disease in the right lower lobe findings that are concerning for pneumonia.
--- NOTE | 2022-05-23 21:20 | PC.NURSE ---
Patient requests that Carmen Hernandez be added to contact list, and Donaldo Frausto. These people, along with Robina Small and are the only people to be given information on patient.
[2022-05-23 21:26] LABS: Basophils # 0.1 K/mm3 (0-0.2); Basophils % 0.7 % (0.1-2.0); Eosinophils # 0.4 K/mm3 (0.0-0.4); Eosinophils % 2.6 % (0.1-12.0); Hematocrit 41.4 % (37.0-47.0); Hemoglobin 13.6 g/dL (12.2-16.2); Lymphocytes # 1.4 K/mm3 (0.7-4.5); Lymphocytes % 10.1 % (10-50); Mean Corpuscular HGB Conc 32.9 g/dL (31.8-35.4); Mean Corpuscular Hemoglobin 30.3 pg (27.0-31.2); Mean Platelet Volume 8.4 fl (7.4-10.4); Monocytes # 0.8 K/mm3 (0.1-1.0); Monocytes % 5.7 % (1.7-9.3); Neutrophils # 11.2 K/mm3 (1.8-7.8); Neutrophils % 80.9 % (37.0-80.0); Platelet Count 199 K/mm3 (142-424); Red Cell Distribution Width 13.4 % (11.5-17.5); White Blood Count 13.8 K/mm3 (4.8-10.8)
[2022-05-23 21:32] LABS: Blood Urea Nitrogen 14 mg/dl (7-17); Calcium 8.7 mg/dl (8.4-10.2); Carbon Dioxide 32 mmol/L (22.0-30.0); Creatinine Clearance Estimated 89 mL/min (50-200); Estimated Glomerular Filt Rate 65 ml/min (>60); GFR (African American) 78 ML/MIN (>60); Glucose 117 mg/dl (74-100); Potassium 3.7 mmoL/L (3.5-5.1); Sodium 136 mmol/L (136-145)
[2022-05-23 21:49] LABS: Procalcitonin 0.136 ng/mL (0.0-2.0)
--- NOTE | 2022-05-23 21:49 | PC.NURSE ---
Spoke with daughter, radha, gave update on pt status. Daughter requests we give her a call back when we know if she will be admitted.
[2022-05-23 21:51] LABS: Anion Gap 1.7 mEq/L (5-15); Chloride 106 mmol/L (98-107); Troponin I < 0.01 ng/ml (0.00-0.034)
[2022-05-23 22:00] LABS: Coronavirus 19, PCR Not Detected (NotDetected); Influenza A, PCR Not Detected (NotDetected); Influenza B, PCR Not Detected (NotDetected)
--- NOTE | 2022-05-23 22:24 | PC.NURSE ---
Patient requested 2l nc be applied. Patients room air saturation is 92% on room.
--- NOTE | 2022-05-23 22:26 | PC.NURSE ---
Hospitalist, Michael, at BS speaking with pt
--- NOTE | 2022-05-23 22:33 | PC.NURSE ---
Spoke with vika morrison regarding patient request for a thermometer to take home. Vika states that she will provide one prior to patient discharge.
--- NOTE | 2022-05-23 22:34 | PC.NURSE ---
dimension warehouse supervisor called for bed assignment
--- NOTE | 2022-05-23 22:37 | PC.NURSE ---
Pt assigned to room 206
--- NOTE | 2022-05-23 22:39 | EXP.HP ---
History of Present Illness *Admission Date: 05/23/22 *Reason for visit:: Fevers, Shortness of air, productive cough *History of present illness: Ms. Traylor is a 56-year-old female with a past medical history of COPD, home oxygen dependent at 2L, chronic tobacco use, Chronic Opioid Dependence, Anxiety Disorder. She presents to [facility] due to a 2-day reported history of myalgias, chills, productive cough and shortness of air. She was recently discharged from the facility on 05/12 where she was treated for concern for Aspiration Pneumonia with Unasyn and completed course of antibiotics with Augmentin. In the ER she had a Cxray that showed a right lower lobe consolidations, WBC was 13.8, Temperature was 102.3. HR was 101. In the ER she had cultures drawn and was given a fluid bolus and started on broad spectrum antibiotic coverage. The patient will be admitted with initial impression: Sepsis and Pneumonia. Cultures will be followed. The plan of care was discussed with the patient on admission in the ER. She verbalized understanding and agreement with the plan of care. [facility] Disclaimer: The information contained in this section may have been updated after the patient was seen, as this information can be updated by other users. Medical History Acute and chronic respiratory failure with hypoxia Anxiety Community acquired pneumonia COPD (chronic obstructive pulmonary disease) Opioid dependence Surgical History History of section History of hysterectomy Family History Other No significant family history Social History Smoking Status: Current every day smoker tobacco type: cigarettes packs per day: 1 pack-years: 44 smoking status start date: 15 years old years smoked: 44 quit status: has quit before alcohol intake: never substance use type: denies use and former substance user counseling provided: support program and treatment program current occupational status: unemployed Travel in the last 8 weeks: None adopted: Yes caregiver/support person: No foster care: No household members: significant other and children housing: house lives independently: Yes marital status: education level: college pets and animals: Yes (dog) pets and animals: dog(s) special blanca needs: No agree to transfusion: No do you feel safe at home: Yes victim of physical abuse: No victim of emotional abuse: No victim of sexual abuse: No would you like helpful sources: No Review of Systems Review of Systems Review of systems:: pertinent systems reviewed and negative unless documented below Constitutional Constitutional: Reports chills and Reports fatigue Eyes Eyes: Reports system reviewed and no additional complaints, except as documented ENT Ears, Nose, Mouth, and Throat: Reports nasal congestion *Cardiovascular Cardiovascular: Reports system reviewed and no additional complaints, except as documented and Reports dyspnea *Respiratory Respiratory: Reports chest congestion, Reports cough, Reports dyspnea and Reports excessive phlegm production *Gastrointestinal Gastrointestinal: Reports system reviewed and no additional complaints, except as documented *Genitourinary Genitourinary: Reports system reviewed and no additional complaints, except as documented *Musculoskeletal Musculoskeletal: Reports muscle cramps, Reports muscle weakness and Reports myalgias Integumentary/Breasts Skin/Breast: Reports system reviewed and no additional complaints, except as documented *Neurologic Neurologic: Reports system reviewed and no additional complaints, except as documented Psychiatric Psychiatric: Reports system reviewed and no additional complaints, except as documented
--- NOTE | 2022-05-23 23:08 | PC.NURSE ---
pt arrived to floor at this time
[2022-05-24] VITALS (10 sets, daily range): BP systolic 111–144; BP diastolic 64–87; PULSE 56–94; RESP 18–22; TEMP 36.6–36.9; O2SAT 91–97; BMI 30.3
[2022-05-24 00:59] LABS: Troponin I < 0.01 ng/ml (0.00-0.034)
--- NOTE | 2022-05-24 01:36 | HMH.EDGENADL ---
Discharge Plan Disposition Patient Disposition: Admitted As Inpatient Condition: Fair Clinical Impressions Clinical Impression: Pneumonia Discharge ED Provider: Baljeet Arguello General Adult HPI General Chief complaint: Upper Respiratory Infection Stated complaint: cough, SOA Time Seen by Provider: 05/23/22 22:00 Mode of Arrival: Ambulatory Source of Information: Patient Limitations: No Limitations Description of Symptoms (Recalled from ER Triage Doc. by RN): Pt c/o fatigue since Thursday with a productive cough (yellow phlegm), and also had had a headache and pain in her chest and shoulders. Pain is reproducable upon palpation. Pt states that this pain resembles when she has had bronchitis in the past. History of Present Illness HPI narrative: Patient presents for evaluation of chest pain, productive cough since Thursday. Patient has past medical history of COPD requiring 2 L nasal cannula at home and recent admission for COPD exacerbation discharge from the hospital early April with treatment with oral antibiotic and oral steroids. Patient has been improved since that time, but is now out of oxygen at home and presents for worsening of symptoms. She reports pain in her chest with coughing that is reproducible to palpation, but does not have pain at rest. Related Data Home Medications Medication Instructions Recorded Confirmed buprenorphine 8 mg-naloxone 2 mg 2 film buccal DAILY addiction 02/10/22 05/24/22 sublingual film (Suboxone) estradiol 1 mg tablet 1 mg PO DAILY HORMONE REPLACEMENT 04/01/22 05/23/22 albuterol sulfate 90 mcg/actuation See Rx Instructions .Route 05/08/22 05/24/22 aerosol inhaler .COMPLEX Breathing problems [id number]-fvsbfhwvnfkiq-fcdmhpww 1 cap PO DAILY Headache 05/08/22 05/23/22 50 mg-300 mg-40 mg capsule (Fioricet) fluticasone propionate 50 1 spray intranasal DAILY PRN 05/08/22 05/23/22 mcg/actuation nasal allergies spray,suspension (Flonase Allergy Relief) lisinopril 20 mg tablet 20 mg PO DAILY Hypertension 05/08/22 05/23/22 nicotine 21 mg/24 hr daily 1 patch transdermal DAILY SMOKING 05/08/22 05/23/22 transdermal patch CESSATION ipratropium 0.5 mg-albuterol 3 mg 3 ml inhalation QID Breathing 05/23/22 05/23/22 (2.5 mg base)/3 mL nebulization problems soln budesonide-formoterol HFA 80 2 puff inhalation BID COPD 05/24/22 05/24/22 mcg-4.5 mcg/actuation aerosol inhaler (Symbicort) bupropion HCl 75 mg tablet 75 mg PO BID Depression 05/24/22 05/24/22 Previous Rx's Medication Instructions Recorded ipratropium 20 mcg-albuterol 100 1 puff inhalation QID COPD #4 grams 03/17/22 mcg/actuation mist for inhalation trazodone 50 mg tablet 50 mg PO HS sleep #30 tabs 05/19/22 Allergies Allergy/AdvReac Type Severity Reaction Status Date / Time No Known Allergies Allergy Verified 05/19/22 14:08 [facility] Disclaimer: The information contained in this section may have been updated after the patient was seen, as this information can be updated by other users. Medical History Acute and chronic respiratory failure with hypoxia Anxiety Community acquired pneumonia COPD (chronic obstructive pulmonary disease) Opioid dependence Surgical History History of section History of hysterectomy Family History Other No significant family history Social History Smoking Status: Current every day smoker tobacco type: cigarettes packs per day: 1 pack-years: 44 smoking status start date: 15 years old years smoked: 44 quit status: has quit before alcohol intake: never substance use type: denies use and former substance user counseling provided: support program and treatment program current occupational status: unemployed Travel in
--- NOTE | 2022-05-24 05:35 | PC.NURSE ---
a&ox4. 2L nc baseline satting 90's. patient received a bolus of fluids and vanc. complaints of achy/cramping pain in neck that radiates down to shoulders. pain meds given. receving breathing tx. home meds locked in drawer.
--- NOTE | 2022-05-24 08:45 | HMH.PHAINT1 ---
Pharmacy Intervention Comments: MEDICATION RECONCILIATION COMPLETE USING LIST FROM MD OFFICE AND EXTERNAL PHARMACY FILL HISTORY AND SB REPORT.
--- NOTE | 2022-05-24 09:24 | EXP.PHA.CONS ---
Pharmacy Consult Date: 05/24/22 Time: 09:24 Referring provider: DR PEREZ Reason for Consult:: VANCOMYCIN DOSING CONSULT Allergies Allergy/AdvReac Type Severity Reaction Status Date / Time Penicillins Allergy Mild Verified 05/24/22 04:20 Home Medications Medication Instructions Recorded Confirmed Type buprenorphine 8 mg-naloxone 2 mg 2 film buccal DAILY addiction 02/10/22 05/24/22 History sublingual film (Suboxone) estradiol 1 mg tablet 1 mg PO DAILY HORMONE REPLACEMENT 04/01/22 05/23/22 History albuterol sulfate 90 mcg/actuation 1 puff inhalation Q4HP PRN 05/08/22 05/24/22 History aerosol inhaler Shortness Of Breath fluticasone propionate 50 1 spray intranasal DAILYP PRN 05/08/22 05/24/22 History mcg/actuation nasal allergies spray,suspension (Flonase Allergy Relief) lisinopril 20 mg tablet 20 mg PO DAILY Hypertension 05/08/22 05/23/22 History nicotine 21 mg/24 hr daily 1 patch transdermal DAILY SMOKING 05/08/22 05/23/22 History transdermal patch CESSATION trazodone 50 mg tablet 50 mg PO HS sleep #30 tabs 05/19/22 05/23/22 Rx ipratropium 0.5 mg-albuterol 3 mg 3 ml inhalation QID Breathing 05/23/22 05/23/22 History (2.5 mg base)/3 mL nebulization problems soln budesonide-formoterol HFA 80 2 puff inhalation BID COPD 05/24/22 05/24/22 History mcg-4.5 mcg/actuation aerosol inhaler (Symbicort) bupropion HCl 75 mg tablet 75 mg PO BID Depression 05/24/22 05/24/22 History rtxusnscln-kgappslelpjcr-fxamvcvm 1 tab PO DAILY Headache 05/24/22 05/24/22 History 50 mg-325 mg-40 mg tablet New Prescriptions to Start Prescriptions: Height: 1.57 m Weight: 74.843 kg Laboratory Results:: Laboratory Results - last 24 hr 05/23/22 20:55: SARS-CoV-2 (PCR) Not detected, Influenza A Untype (PCR) Not detected, Influenza Type B (PCR) Not detected 05/23/22 21:15: WBC 13.8 H, RBC 4.50, Hgb 13.6, Hct 41.4, MCV 92.0, MCH 30.3, MCHC 32.9, RDW 13.4, Plt Count 199, MPV 8.4, Neut % (Auto) 80.9 H, Lymph % (Auto) 10.1, [place] % (Auto) 5.7, Eos % (Auto) 2.6, Baso % (Auto) 0.7, Neut # (Auto) 11.2 H, Lymph # (Auto) 1.4, [place] # (Auto) 0.8, Eos # (Auto) 0.4, Baso # (Auto) 0.1 05/23/22 21:15: Sodium 136, Potassium 3.7, Chloride 106, Carbon Dioxide 32 H, Anion Gap 1.7 L, BUN 14, Creatinine 0.90, Estimated Creat Clear 89, Estimated GFR 65, Est GFR ( Amer) 78, Glucose 117 H, Calcium 8.7, Troponin I < 0.01, Procalcitonin 0.136 05/24/22 00:28: Troponin I < 0.01 Medical History: Medical History (Updated 05/23/22 @ 22:54 by Michael Cervantes DNP) Acute and chronic respiratory failure with hypoxia Anxiety Community acquired pneumonia COPD (chronic obstructive pulmonary disease) Opioid dependence Assessment and Plan Assessment and plan all Dx Assessment and Plan for all problems:: Pharmacokinetic dosing service Objective: Age: 56 yo Serum creatinine: 0.9 mg/dL Height: 61.8 Inches Weight (kg): 74.843 Diagnosis: HEALTHCARE ACQUIRED PNEUMONIA Assessment: IBW (kg): 49.64 Dosing wt(kg): 74.843 Estimated Creatinine clearance (ml/min): 54.0 CRCL method: Cockcroft and Gault using ibw(default). Drug selected: Vancomycin Vd (liters): 56.1 (factor used: 0.75 L/kg) Vinny (hr-1): 0.049 Half life (hrs): 14.15 CLvanco=?? 2.749 L/hr Recommended dose: 1500 mg Interval: 24 hrs Infusion time (hrs): 2.0 Predicted peak (mcg/mL): 36.8 Predicted trough (mcg/mL): 12.52 Total body weight is being used for vancomycin dosing. Recommendations: Give Vancomycin 1500 mg q 24 hrs with an expected Cpeak of 36.8 mcg/ml and an expected Ctrough of 12.52 mcg/ml AUC 0-24 /ANTON Data: ANTON 0.5 mcg/mL:?? AUC/ANTON:? 1091.3 ANTON 1.0 mcg/mL:?? AUC/ANTON:? 545.7 --------- ANTON 1.5 mcg/mL:?? AUC/ANTON:? 363.8 ANTON 2.0 mcg/mL:?? A
--- NOTE | 2022-05-24 10:57 | EXP.ACUTE.PN ---
Subjective *Date: 05/24/22 *Time: 10:57 Interval history: Patient continues to complain of some upper back muscular pain. Requesting Toradol. Stable on 2 L oxygen which is her home oxygen requirement. Still with cough and feeling tight in her chest. Complaining of nausea this morning. Overall feels weak and is not sure she can go home. Awaiting physical therapy evaluation. Denies chest pain, confusion, diarrhea, fever Medical Exam Vital signs and Labs for Last 24 Hours: Vital Signs Temp Pulse Pulse Resp BP BP Pulse Ox 05/24/22 07:58 98.5 F 56 L 18 111/70 95 05/24/22 06:20 64 05/24/22 06:20 64 05/24/22 06:20 92 L 05/24/22 06:13 64 05/24/22 06:13 64 05/24/22 06:13 92 L 05/24/22 04:00 97.9 F 69 18 113/64 95 05/24/22 00:40 85 05/24/22 00:40 94 H 05/24/22 00:40 97 05/23/22 23:08 99.0 F 89 18 114/75 93 L 05/23/22 23:00 99.9 F H 90 24 137/71 05/23/22 22:15 98 H 91 L 05/23/22 22:00 100.1 F H 94 H 117/80 93 L 05/23/22 21:30 91 H 109/78 L 92 L 05/23/22 21:20 103 H 92 L 05/23/22 21:00 102.3 F H 101 H 18 134/82 98 Intake and Output 05/23/22 05/24/22 05/24/22 23:59 07:59 15:59 Intake Total 50 8 888 / 1128 240 / 1128 Output Total 900 / 1300 400 / 1300 Balance 50 8 -12 / -172 -160 / -172 Intake: Intake, Oral Amount 240 / 240 Intake, Total IV Amount 50 / 938 888 / 888 0.9 % Sodium Chloride 1,000 ml 888 / 888 @ 999 mls/hr IV .Q1H1M [facility] Rx#: [id number] Output: Output, Urine Amount 900 / 1300 400 / 1300 Other: Number of Unmeasured Voids 0 1 Number of Bowel Movements 1 Weight 74.843 kg 74.843 kg 74.843 kg Patient Weight 05/24/22 23:59 Weight 74.843 kg Laboratory Results - last 24 hr 05/23/22 20:55: SARS-CoV-2 (PCR) Not detected, Influenza A Untype (PCR) Not detected, Influenza Type B (PCR) Not detected 05/23/22 21:15: WBC 13.8 H, RBC 4.50, Hgb 13.6, Hct 41.4, MCV 92.0, MCH 30.3, MCHC 32.9, RDW 13.4, Plt Count 199, MPV 8.4, Neut % (Auto) 80.9 H, Lymph % (Auto) 10.1, [place] % (Auto) 5.7, Eos % (Auto) 2.6, Baso % (Auto) 0.7, Neut # (Auto) 11.2 H, Lymph # (Auto) 1.4, [place] # (Auto) 0.8, Eos # (Auto) 0.4, Baso # (Auto) 0.1 05/23/22 21:15: Sodium 136, Potassium 3.7, Chloride 106, Carbon Dioxide 32 H, Anion Gap 1.7 L, BUN 14, Creatinine 0.90, Estimated Creat Clear 89, Estimated GFR 65, Est GFR ( Amer) 78, Glucose 117 H, Calcium 8.7, Troponin I < 0.01, Procalcitonin 0.136 05/24/22 00:28: Troponin I < 0.01 I & O for Labs for Last 24 Hours: Intake & Output 05/21/22 05/22/22 05/23/22 05/24/22 23:59 23:59 23:59 23:59 Intake Total 50 8 1128 / 1128 Output Total 1300 / 1300 Balance 50 / 8 -172 / -172 Weight 74.843 kg 74.843 kg Constitutional: Present no acute distress, obese, chronically ill appearing and disheveled Head: Present atraumatic and normocephalic ENT: Present mucous membranes moist Comment:: poor dentition Neck: Present normal inspection Respiratory: Present rhonchi, wheezes, diminished air movement and normal respiratory effort; Absent accessory muscle use or crackles Cardiac: Present Reg Rate and Rhythm GI: Present soft and normal bowel sounds; Absent distention or tenderness Extremities: Present normal inspection and full ROM; Absent tenderness Comment:: Spider veins bilaterally in lower extremity Skin: Present intact; Absent erythema Neuro: Present Cranial Nerve 2-12 Intact, Grossly Intact, alert, awake, oriented x 3 and moves all extremities Assessment and Plan *Assessment and plan (1) Sepsis: Status: Acute Category: Medical Code(s): A41.9 - Sepsis, unspecified organism (2) Pneumonia: Status: Acute Category: Medical Code(s): J18.9 - Pneumonia, unspecified organism (3) COPD (chronic obstructive pulmonary disease): Status: Acute Qualifiers
--- NOTE | 2022-05-24 12:55 | HMH.PTEV ---
Physical Therapy Evaluation Rehab PT IP Evaluation Start: 05/24/22 09:54 Freq: ONCE Status: Active Protocol: Document 05/24/22 12:35 PDESEROUX (Rec: 05/24/22 12:55 [email or web address] [id number]) Subjective/History History History Pt. is a 56 year old female who presents to [facility] 2nd floor Inpatient on w/ c/o acute and constant SOB, fever, and productive cough for 2 weeks per pt. report. Pt. reports history of acute/chronic respiratory failure w/ hypoxia, COPD, and hx. of pneumonia. Pt. currently reports increased fatigue, weakness, and endurance secondary to upper respiratory tract infection. Pt. reports she lives with her whom is dependent on her at times b/c he ambulates w/ a SPC. Pt. reports IND. w/ ALDs prior to admittance into the hospital, however, recently required assistance secondary to current complaints. Pt. also c /o constant cervical/bilateral shldr. P! that worsens w/ prolonged activity. Subjective Subjective Pt. presents to [facility] 2nd floor Inpatient w/ hx. of SOB, fever , and productive cough secondary upper respiratory tract infection. Upon entry into pt.'s room after verbal consent, pt. was alone and found standing/ making up her hospital bed. Pt . continued to finish making up hospital bed during subjective evauation. Pt. was left in hospital bed w/ supervision of Nurse upon exiting room. Rehab PT IP Eval Objective Appearance Patient Behavior Appropriate,Cooperative, Anxious,Talkative Patient Orientation Person,Place,Birthday Speech Pattern Clear,Appropriate,Coherent Ambulation Patient Able to Ambulate Yes Ambulation Ob
--- NOTE | 2022-05-24 17:24 | PC.NURSE ---
Vs stable, patient able to maintain 91% oxygen on room air but would use 2LNC when feeling SOB. Lung sounds expiratory wheezes on ascultation. Patient stated she has been getting confused at times at home, MD aware. Patient alert and oriented all shift with no periods of confusion noted.
[2022-05-25] VITALS: BP 147/85; PULSE 88; RESP 18; TEMP 37.1; O2SAT 94
[2022-05-25 04:00] VITALS: BP 140/77; PULSE 75; RESP 16; TEMP 36.9; O2SAT 94; BMI 32.2
[2022-05-25 06:18] VITALS: PULSE 62; O2SAT 97
--- NOTE | 2022-05-25 07:11 | EXP.DC.SUM ---
General Admission date:: 05/23/22 Discharge date: 05/25/22 HPI HPI HPI: Ms. Traylor is a 56-year-old female with a past medical history of COPD, home oxygen dependent at 2L, chronic tobacco use, Chronic Opioid Dependence, Anxiety Disorder. She presents to [facility] due to a 2-day reported history of myalgias, chills, productive cough and shortness of air. She was recently discharged from the facility on 05/12 where she was treated for concern for Aspiration Pneumonia with Unasyn and completed course of antibiotics with Augmentin. In the ER she had a Cxray that showed a right lower lobe consolidations, WBC was 13.8, Temperature was 102.3. HR was 101. In the ER she had cultures drawn and was given a fluid bolus and started on broad spectrum antibiotic coverage. The patient will be admitted with initial impression: Sepsis and Pneumonia. Cultures will be followed. The plan of care was discussed with the patient on admission in the ER. She verbalized understanding and agreement with the plan of care. Hospital Course Hospital Course Hospital Course: 56-year-old female with past medical history of COPD, home oxygen dependent at 2L, chronic tobacco use presents with a 2-day history of cough, shortness of air, body aches, fevers - Sepsis (POA) - Pneumonia - COPD exacerbation Sepsis criteria met on admission includes:? Temperature 102.3, HR 101, WBC 13.8, Cxray with RLL airspace disease. Recent admission for pneumonia. Was discharged home on Augmentin and steroids. Patient's blood cultures have been negative. Sputum culture positive for gram-positive cocci. Will transition to doxycycline as this will give us coverage for staph and strep along with secondary coverage for haemophilus influenza which her sputum last time grew. Total antibiotic course 7 days. Complete 5 total days of steroids. Medically stable for discharge with close follow-up with pulmonology. Continue breathing treatments as previously ordered at home with DuoNebs every 4 hours as needed. Continue to encourage smoking cessation. - Opioid Dependence: Continue Suboxone 8-2mg film as takes at home - Tobacco Abuse: NRT started, continue to discuss need for cessation - Depression: Bupropion 75 mg po q day per home regimen Patient stable to discharge home. Room air saturation above 90 during the day on day of discharge. Continue to wear oxygen as needed, at least at night. Close follow-up with pulmonology on Thursday as previously scheduled. Exam Data for Last 24 hours Vital signs and Labs for Last 24 Hours: Temp Pulse Resp BP Pulse Ox FiO2 98.4 F 62 16 140/77 97 28 05/25/22 04:00 05/25/22 06:18 05/25/22 04:00 05/25/22 04:00 05/25/22 06:18 05/24/22 18:42 I & O for Last 24 hours: Intake & Output 05/22/22 05/23/22 05/24/22 05/25/22 23:59 23:59 23:59 23:59 Intake Total 50 / 938 1848 / 1848 Output Total 1300 / 1300 0 / 0 Balance 50 / 938 548 / 548 0 / 0 Weight 74.843 kg 74.843 kg 79.379 kg Microbiology Reports for the Last 24 Hours: Microbiology 05/23/22 21:16 Sputum - Expectorated Sputum Gram Stain - Final 05/23/22 21:16 Sputum - Expectorated Sputum Sputum Culture - Preliminary Gram Positive Cocci Constitutional Constitutional: no acute distress, obese, chronically ill appearing and cooperative *Routine HEENT Exam Head: Present normocephalic Eye: Present EOMI and PERRL ENT: Present mucous membranes moist *Routine Neck Exam Neck: Present supple, full ROM and trachea midline; Absent lymphadenopathy *Routine Respiratory Exam Respiratory: Present wheezes, normal respiratory effort and symmetric chest movement; Absent rhonchi or crackles *Routine Cardiovascular Exam Cardiovascular: Present RRR *Routine Abdominal Exam Abdominal: Present soft and normoactive bowel sounds; Absent tenderness *Routine Rectal Exam Patient deferred: visual exam *Routine Exam Patient deferred:
[2022-05-25 07:27] LABS: Basophils % 0.3 % (0.1-2.0); Eosinophils % 0.1 % (0.1-12.0); Hematocrit 37.3 % (37.0-47.0); Lymphocytes # 1.5 K/mm3 (0.7-4.5); Lymphocytes % 14.5 % (10-50); Mean Corpuscular HGB Conc 32.2 g/dL (31.8-35.4); Mean Corpuscular Hemoglobin 30.6 pg (27.0-31.2); Mean Corpuscular Volume 94.9 fl (81-99); Mean Platelet Volume 8.5 fl (7.4-10.4); Monocytes # 0.4 K/mm3 (0.1-1.0); Monocytes % 3.9 % (1.7-9.3); Neutrophils # 8.5 K/mm3 (1.8-7.8); Neutrophils % 81.3 % (37.0-80.0); Platelet Count 176 K/mm3 (142-424); Red Blood Count 3.93 M/mm3 (4.20-5.40); Red Cell Distribution Width 13.3 % (11.5-17.5); White Blood Count 10.5 K/mm3 (4.8-10.8)
[2022-05-25 07:31] LABS: Chloride 113 mmol/L (98-107); Potassium 4.4 mmoL/L (3.5-5.1); Sodium 142 mmol/L (136-145)
[2022-05-25 07:34] LABS: Alanine Aminotransferase 23 U/L (12-78); Albumin/Globulin Ratio 1.2 (1.1-1.8); Alkaline Phosphatase 85 U/L (38-126); Anion Gap 5.4 mEq/L (5-15); Aspartate Amino Transferase 20 U/L (14-36); Bilirubin,Total 0.2 mg/dl (0.2-1.3); Blood Urea Nitrogen 11 mg/dl (7-17); Calcium 8.5 mg/dl (8.4-10.2); Carbon Dioxide 28 mmol/L (22.0-30.0); Creatinine Clearance Estimated 86 mL/min (50-200); Estimated Glomerular Filt Rate 65 ml/min (>60); GFR (African American) 78 ML/MIN (>60); Globulin 2.5 g/dL (1.3-3.2); Glucose 114 mg/dl (74-100); Magnesium 2.3 mg/dl (1.6-2.3); Total Protein,Serum 5.5 g/dl (6.3-8.2)
[2022-05-25 07:38] VITALS: BP 136/75; PULSE 87; RESP 17; TEMP 36.9; O2SAT 98
--- NOTE | 2022-05-25 10:19 | PC.NURSE ---
attempted to call pt's son for transport home twice. No answer and not able to leave a message on voicemail. Will attempt to call again.
[2022-05-25 10:57] VITALS: BP 144/90; PULSE 77; RESP 17; TEMP 37.1; O2SAT 92
[2022-05-25 11:46] VITALS: PULSE 64; O2SAT 90
--- NOTE | 2022-05-25 12:10 | HMH.PHAINT1 ---
Pharmacy Intervention Comments: DISCHARGE MEDICATION COUNSELING PROVIDED. DISCUSSED THE FOLLOWING NEW MEDICATIONS: -DOXYCYCLINE (ANTIBIOTIC, TWICE DAILY, TAKE WITH FOOD, N/V/D POSSIBLE, RARELY CAN CAUSE RASH) -PREDNISONE (STEROID, DAILY, TAKE WITH FOOD IN THE MORNING, MAY CAUSE HUNGER, INSOMNIA, N/V/D) PATIENT DID ASK IF SHE SHOULD CONTINUE THE ALBUTEROL INHALER THAT WAS STARTED IN THE ER WITH ANTICIPATION SHE WOULD DISCHAGE HOME FROM THERE. I ADVISED THAT IT WAS ON THE DISCHARGE LIST. PATIENT VERBALIZED NO ADDITIONAL QUESTIONS AT THIS TIME.
--- NOTE | 2022-05-26 07:16 | EXP.EVENT.NO ---
Patient's sputum returned positive for strep pneumoniae. Sensitivity unfortunately resistant to tetracycline (doxycycline was ordered at discharge yesterday). Have sent Augmentin 500 mg 3 times a day for 5 days to patient's preferred location: [place] [facility]. Review of chart showed she had appropriate coverage during admission with cefepime. Attempt to call patient this morning at 7:15 with no answer. attempt at 10:20 went to voicemail, mailbox full. Case management finally able to make contact with patient. 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 She will have Augmentin delivered to her today from her pharmacy. I have spoken to our pharmacist at [facility], they will assist in coordinating getting the steroids which were not picked up yesterday transferred to patient's home pharmacy so that she may have both prescriptions delivered to her house. Additionally patient states she rescheduled her pulmonology appointment from this week to the end of next month. No clear explanation as to why she rescheduled this necessary appointment. Concern this will only increase the risk for her readmission.
--- NOTE | 2022-05-26 13:44 | CARE MANAGER ---
Spoke with patient r/t recent discharge. Patient's cultures came back resistant to ABX originally ordered at discharge and Dr. Melendez has sent in Augmentin today.. Patient stated that she will have pharmacy deliver it. She also stated that she has rescheduled her Dr. Lozano appt to 06/24 (scheduled for 05/27 @ discharge). No concerns or complaints at time of discharge.
[2022-05-26 17:09] LABS: Legionella pneumophila Urinary Negative (Negative)
[2022-05-27 15:10] LABS: Body Fluid Culture, Sterile Not indicated. (.); Organism ID Not indicated. (.); Specimen Source Urine (.); Streptococcus pneumoniae Ag Negative (Negative)
[2022-05-31 21:41] LABS: MRSA DNA PCR NEGATIVE
== END 2022-05-25 13:41 | disposition home or self-care (01) ==
LOC: ER 22:18 → 2ND 22:39
PROVIDERS: Nurse Practitioner Family; Admitting Provider Internal Medicine Adolescent Medicine; Emergency Provider Emergency Medicine; PCP Emergency Medicine; Visit Provider Internal Medicine Adolescent Medicine
DX: J18.9 Pneumonia, unspecified organism (principal); J44.1 Chronic obstructive pulmonary disease with (acute) exacerbation; F11.20 Opioid dependence, uncomplicated; F17.210 Nicotine dependence, cigarettes, uncomplicated; F32.A Depression, unspecified; F41.9 Anxiety disorder, unspecified; Z79.899 Other long term (current) drug therapy; Z99.81 Dependence on supplemental oxygen; J96.11 Chronic respiratory failure with hypoxia; Z20.822 Contact with and (suspected) exposure to COVID-19
CPT/HCPCS: G0378; 36415; 71046; 80048; 80053; 83735; 84145; 84484; 85025; 87070; 87077; 87186; 87205; 87641; 87899; 93005; 94640; 94760; 94761; 97161; 99285; C9803; J0574; J0692; U0003; U0005

== ENCOUNTER 2022-06-19 16:35 | Observation (INO) | payer MEDICARE, MEDICAID, SELFPAY ==
[2022-06-19] VITALS (8 sets, daily range): BP systolic 141–170; BP diastolic 89–105; PULSE 67–80; RESP 17–22; TEMP 36.8–36.9; O2SAT 90–94; BMI 32.0; BMI 31.5
--- NOTE | 2022-06-19 16:43 | ECG_ITS ---
APPROVED REPORT Exam: Resting ECG HR:90 bpm ECG Measurements Heart Rate 90 AXES OR 181 P 78 QRSd 117 QRS 69 QT 382 T 62 QTc 430 Conclusion SINUS RHYTHM MODERATE INTRAVENTRICULAR CONDUCTION DELAY [110+ ms QRS DURATION] BORDERLINE ECG UNCONFIRMED REPORT Electronically signed by : Sudhakar Mathew MD 06/20/2022 15:40:15
--- NOTE | 2022-06-19 16:57 | XR_ITS ---
PROCEDURE INFORMATION: Exam: XR Chest Exam date and time: 06/19/2022 5:23 PM Age: 56 years old Clinical indication: Shortness of breath; Additional info: SOA TECHNIQUE: Imaging protocol: Radiologic exam of the chest. Views: 1 view. COMPARISON: CR XR CHEST 2V 05/23/2022 9:07 PM FINDINGS: Lungs: Question peribronchial thickening and perihilar stranding suggesting bronchitis. Low lung volumes and central vascular crowding. Normal pulmonary expansion. No gross pulmonary infiltrates. Pleural spaces: No pleural effusion. No pneumothorax. Heart/Mediastinum: Heart size normal. No tracheal/mediastinal shift. Bones/joints: No acute osseous abnormalities are identified. IMPRESSION: 1. Question changes of bronchitis. No gross pulmonary infiltrates. 2. Low lung volumes and central vascular crowding.
--- NOTE | 2022-06-19 17:08 | HMH.EDGENADL ---
Discharge Plan Disposition Patient Disposition: Admitted as Observation Condition: Fair Clinical Impressions Clinical Impression: Acute exacerbation of chronic obstructive pulmonary disease, Acute and chronic respiratory failure with hypoxia, Acute bronchitis Discharge ED Provider: Sebastian Salamanca General Adult HPI General Chief complaint: Shortness of Breath/Dyspnea Stated complaint: SOA Time Seen by Provider: 06/19/22 17:15 Mode of Arrival: Ambulatory Source of Information: Patient Limitations: No Limitations Description of Symptoms (Recalled from ER Triage Doc. by RN): pt c/o increased shortness of air x 3 days w productive cough of thick, clear sputum; PCP Andrea Rx pred, taking x 2days History of Present Illness HPI narrative: Patient states that she has been sick since Thursday 4 days ago. She has had increased shortness of breath, increased dyspnea on exertion. She is wheezing. She says that Dr. Mendez prescribed her prednisone which she believes she began taking on Thursday, 3 days ago. She states that since starting prednisone she has begun to cough some stuff up. Denies fever. Denies chest pain. States that she was hospitalized twice in April with pneumonia and COPD. States that she feels like she needs to be back in the hospital overnight. She uses oxygen at night. She uses a nebulizer at home 4 times a day and is recently also began getting up at night to use it because of persistent shortness of breath. She is a smoker. Most recent antibiotics were Augmentin and doxycycline. Related Data Home Medications Medication Instructions Recorded Confirmed buprenorphine 8 mg-naloxone 2 mg 2 film buccal DAILY addiction 02/10/22 05/24/22 sublingual film (Suboxone) estradiol 1 mg tablet 1 mg PO DAILY HORMONE REPLACEMENT 04/01/22 05/23/22 albuterol sulfate 90 mcg/actuation 1 puff inhalation Q4HP PRN 05/08/22 05/24/22 aerosol inhaler Shortness Of Breath fluticasone propionate 50 1 spray intranasal DAILYP PRN 05/08/22 05/24/22 mcg/actuation nasal allergies spray,suspension (Flonase Allergy Relief) lisinopril 20 mg tablet 20 mg PO DAILY Hypertension 05/08/22 05/23/22 nicotine 21 mg/24 hr daily 1 patch transdermal DAILY SMOKING 05/08/22 05/23/22 transdermal patch CESSATION ipratropium 0.5 mg-albuterol 3 mg 3 ml inhalation QID Breathing 05/23/22 05/23/22 (2.5 mg base)/3 mL nebulization problems soln budesonide-formoterol HFA 80 2 puff inhalation BID COPD 05/24/22 05/24/22 mcg-4.5 mcg/actuation aerosol inhaler (Symbicort) bupropion HCl 75 mg tablet 75 mg PO BID Depression 05/24/22 05/24/22 [id number] 1 tab PO DAILY Headache 05/24/22 05/24/22 50 mg-325 mg-40 mg tablet Previous Rx's Medication Instructions Recorded trazodone 50 mg tablet 50 mg PO HS sleep #30 tabs 05/19/22 doxycycline hyclate 100 mg capsule 100 mg PO BID 5 days #10 caps 05/25/22 amoxicillin 500 mg-potassium 1 tab PO TID 5 days #15 tabs 05/26/22 clavulanate 125 mg tablet methylprednisolone 4 mg tablets in See Rx Instructions PO PER PKG DIR 06/09/22 a dose pack (Medrol (Otm)) #21 tabs prednisone 10 mg tablet See Rx Instructions .Route 06/13/22 .COMPLEX #30 tabs Allergies Allergy/AdvReac Type Severity Reaction Status Date / Time Penicillins Allergy Mild Verified 05/24/22 04:20 [facility] Disclaimer: The information contained in this section may have been updated after the patient was seen, as this information can be updated by other users. Medical History Acute and chronic respiratory failure with hypoxia Anxiety Community acquired pneumonia COPD (chronic obstructive pulmonary disease) Opioid dependence Surgical History History of section History of hysterectomy Family History Other No significant family history
[2022-06-19 17:12] LABS: Basophils # 0.1 K/mm3 (0-0.2); Basophils % 0.7 % (0.1-2.0); Chloride 105 mmol/L (98-107); Eosinophils # 0.1 K/mm3 (0.0-0.4); Eosinophils % 1.4 % (0.1-12.0); Hematocrit 42.4 % (37.0-47.0); Hemoglobin 13.7 g/dL (12.2-16.2); Lymphocytes % 27.8 % (10-50); Mean Corpuscular HGB Conc 32.2 g/dL (31.8-35.4); Mean Corpuscular Hemoglobin 29.9 pg (27.0-31.2); Mean Corpuscular Volume 92.7 fl (81-99); Monocytes # 0.3 K/mm3 (0.1-1.0); Monocytes % 4.7 % (1.7-9.3); Neutrophils # 4.6 K/mm3 (1.8-7.8); Neutrophils % 65.4 % (37.0-80.0); Platelet Count 232 K/mm3 (142-424); Red Blood Count 4.58 M/mm3 (4.20-5.40); Red Cell Distribution Width 13.6 % (11.5-17.5); White Blood Count 7.1 K/mm3 (4.8-10.8)
[2022-06-19 17:13] LABS: Potassium 4.2 mmoL/L (3.5-5.1); Sodium 141 mmol/L (136-145)
[2022-06-19 17:15] LABS: Blood Urea Nitrogen 14 mg/dl (7-17); Creatinine Clearance Estimated 86 mL/min (50-200); Estimated Glomerular Filt Rate 65 ml/min (>60); GFR (African American) 78 ML/MIN (>60)
[2022-06-19 17:16] LABS: Anion Gap 10.2 mEq/L (5-15); Calcium 8.9 mg/dl (8.4-10.2); Carbon Dioxide 30 mmol/L (22.0-30.0); Glucose 95 mg/dl (74-100); Lactic Acid 0.8 mmol/L (0.7-2.1)
[2022-06-19 17:16] LABS: ABG Base Excess -2.2 mmol/L (-2.4-2.3); ABG Oxygen Saturation 93 % (90-100); ABG PCO2 40.2 mmhg (35.0-45.0); ABG PH 7.38 mmol/L (7.35-7.45); ABG PO2 60.7 mmhg (80-100); ABG TCO2 24.3 mmhg (23-27); Allen's Test Acceptable; Oxygen 21 %
[2022-06-19 17:17] LABS: Source Right Radial
[2022-06-19 17:29] LABS: Troponin I < 0.01 ng/ml (0.00-0.034)
[2022-06-19 17:47] LABS: Coronavirus 19, PCR Not Detected (NotDetected); Influenza A, PCR Not Detected (NotDetected); Influenza B, PCR Not Detected (NotDetected)
--- NOTE | 2022-06-19 19:01 | PC.NURSE ---
pt's oxygen 88% on room air. pt sleeping in room. pt reports she wears 2L nc when she sleeps. pt placed on 2L
--- NOTE | 2022-06-19 19:02 | PC.NURSE ---
placed a antonio pt was struggling ambulation to restroom, call light @ bs
--- NOTE | 2022-06-19 19:39 | PC.NURSE ---
Updated son, Geovanny, that pt would be getting admitted.
--- NOTE | 2022-06-19 19:41 | PC.NURSE ---
on phone with hospitalist about admission
--- NOTE | 2022-06-19 19:47 | PC.NURSE ---
Hospitalist, Michael, at BS
[2022-06-19 19:52] LABS: Adenovirus,PCR Not Detected (NotDetected); Bordetella Pertussis Not Detected (NotDetected); Chlamydophila Pneumoniae, PCR Not Detected (NotDetected); Coronavirus 19, PCR Not Detected (NotDetected); Coronavirus 229E Not Detected (NotDetected); Coronavirus NL63 Not Detected (NotDetected); Coronavirus OC43 Not Detected (NotDetected); Coronovirus HKU1,PCR Not Detected (NotDetected); Human Metapneumovirus Not Detected (NotDetected); Influenza A, PCR Not Detected (NotDetected); Influenza AH1, 2009 Not Detected (NotDetected); Influenza AH1, PCR Not Detected (NotDetected); Influenza AH3,PCR Not Detected (NotDetected); Influenza B, PCR Not Detected (NotDetected); Mycoplasma Pneumoniae, PCR Not Detected (NotDetected); Parainfluenza 1, PCR Not Detected (NotDetected); Parainfluenza 2, PCR Not Detected (NotDetected); Parainfluenza 3, PCR Not Detected (NotDetected); Parainfluenza 4, PCR Not Detected (NotDetected); Respiratory Syncytial Virus Not Detected (NotDetected); Rhinovirus/Enterovirus Not Detected (NotDetected)
--- NOTE | 2022-06-19 19:57 | EXP.HP ---
History of Present Illness *Admission Date: 06/19/22 *Reason for visit:: Shortness of air, Dyspnea with exertion, cough *History of present illness: Ms. Traylor is a 56-year-old female with a past medical history of COPD, home oxygen dependent at 2L q hs, chronic tobacco use, Chronic pain syndrome and Anxiety Disorder. She presents to [facility] through the ER due to a 4 day history of cough, progressing shortness of air and dyspnea with exertion. She reports known similar sick contacts, but denies knowing their diagnosis. She denies the use of OTC medications for symptoms, but reports that her PCP gave her some steroids that have only helped minimally. In the ER the patient underwent a Cxray that showed low lung volumes with central vascular crowding consistent with Bronchitis. Covid and Flu testing were negative. Troponin was <0.01. EKG showed NSR with no ST segment elevation or depression. ABG showed mild hypoxemia with pO2 at 60.7 on FiO2 21%. CBC and CMP were unremarkable. Per ER physician she was in the 80's on room air on presentation and quickly recovered with 2L nasal cannula. In the ER she had blood cultures drawn, procalcitonin was ordered and is pending along with full respiratory panel and sputum. She was given Doxycycline, Duonebs and steroids. The patient will be admitted with initial impression: Acute on Chronic Hypoxic Respiratory Failure and COPD exacerbation. [facility] Disclaimer: The information contained in this section may have been updated after the patient was seen, as this information can be updated by other users. Medical History Acute and chronic respiratory failure with hypoxia Anxiety Community acquired pneumonia COPD (chronic obstructive pulmonary disease) Opioid dependence Surgical History History of section History of hysterectomy Family History Other No significant family history Social History Smoking Status: Current every day smoker tobacco type: cigarettes packs per day: 1 pack-years: 44 smoking status start date: 15 years old years smoked: 44 quit status: has quit before alcohol intake: never substance use type: denies use and former substance user counseling provided: support program and treatment program current occupational status: unemployed Travel in the last 8 weeks: None adopted: Yes caregiver/support person: No foster care: No household members: significant other and children housing: house lives independently: Yes marital status: education level: college pets and animals: Yes (dog) pets and animals: dog(s) special blanca needs: No agree to transfusion: No do you feel safe at home: Yes victim of physical abuse: No victim of emotional abuse: No victim of sexual abuse: No would you like helpful sources: No Review of Systems Review of Systems Review of systems:: pertinent systems reviewed and negative unless documented below Constitutional Constitutional: Reports system reviewed and no additional complaints, except as documented Eyes Eyes: Reports system reviewed and no additional complaints, except as documented ENT Ears, Nose, Mouth, and Throat: Reports system reviewed and no additional complaints, except as documented *Cardiovascular Cardiovascular: Reports dyspnea and Reports dyspnea on exertion *Respiratory Respiratory: Reports cough, Reports dyspnea and Reports dyspnea on exertion *Gastrointestinal Gastrointestinal: Reports system reviewed and no additional complaints, except as documented *Genitourinary Genitourinary: Reports system reviewed and no additional complaints, except as documented Integumentary/Breasts Skin/Breast: Reports system reviewed and no additional complai
--- NOTE | 2022-06-19 19:58 | PC.NURSE ---
attempted to call report Neville states will call back in 5 mins
[2022-06-19 20:03] LABS: Procalcitonin 0.038 ng/mL (0.0-2.0)
[2022-06-19 20:42] LABS: NT Pro Brain Natriuretic Pep. 118 pg/mL (0-125)
--- NOTE | 2022-06-19 21:13 | CT_ITS ---
PROCEDURE INFORMATION: Exam: CTA Chest With Contrast Exam date and time: 06/19/2022 9:42 PM Age: 56 years old Clinical indication: Abnormal findings; Abnormal diagnostic tests; Elevated d-dimer; Additional info: Elevated d-dimer, dyspnea with exertion TECHNIQUE: Imaging protocol: Computed tomographic angiography of the chest with contrast. 3D rendering (Not supervised by radiologist): MIP and/or 3D reconstructed images were created by the technologist. Radiation optimization: All CT scans at this facility use at least one of these dose optimization techniques: automated exposure control; mA and/or kV adjustment per patient size (includes targeted exams where dose is matched to clinical indication); or iterative reconstruction. Contrast material: ISOVUE; Contrast volume: 70 ml; Contrast route: INTRAVENOUS (IV); REPORTING DATA: Count of CT and Cardiac NM exams in prior 12 months: This patient has received [address] and 0 known cardiac nuclear medicine studies in the 12 months prior to the current study. COMPARISON: CT ANGIO CHEST PE PROTOCOL 05/08/2022 8:45 PM FINDINGS: Pulmonary arteries: The pulmonary arteries enhance appropriately with no evidence of pulmonary embolism. Aorta: Mild aortic ectasia/tortuosity and calcific atherosclerosis. No aortic aneurysm or dissection. No mediastinal hematoma. Thyroid: The visualized thyroid gland demonstrates no gross abnormality. Lungs: Granulomatous calcifications in the lower mediastinum and bilateral hilar distributions. Moderate bilateral bronchial wall thickening consistent with bronchitis or bronchial edema. No bronchiectasis. No bronchial occlusions. Mild peripheral juxtapleural alveolar opacity with slight adjacent reticulonodular changes in the right upper lobe anterior segment just above the minor fissure consistent with a small zone of peripheral atypical pneumonia versus nodular atelectasis. Bandlike atelectasis in the right lower lobe and lingula. No pulmonary mass lesions are identified. Pleural spaces: No pleural effusion. No pneumothorax. Heart: Heart size normal. Mild coronary artery calcification. No pericardial effusion. Mediastinal space: The esophagus is largely contracted but demonstrates no gross abnormality. Lymph nodes: No supraclavicular or axillary adenopathy. Mildly enlarged pretracheal retrocaval mediastinal nodes and AP window nodes, nonspecific. Kidneys and ureters: Multifocal right renal cortical thinning suggesting chronic cortical scarring. Bones/joints: No acute osseous abnormalities are identified. Mild thoracic spondylosis. Soft tissues: The soft tissues of the chest wall demonstrate no acute abnormality. IMPRESSION: 1. No evidence of pulmonary embolism or aortic dissection. 2. Moderate bronchial wall thickening suggesting changes of bronchitis or bronchial edema. 3. Small zone of peripheral alveolar opacity and adjacent mild reticulonodular changes in the right upper lobe anterior segment suspicious for a small zone of peripheral atypical pneumonia, versus nodular atelectasis or fibrosis. 4. Mildly enlarged mediastinal nodes in the pretracheal retrocaval distribution and AP window, nonspecific. 5. Additional nonemergent findings detailed above.
--- NOTE | 2022-06-19 21:14 | PC.NURSE ---
notified hospitalist of patients elevated blood pressure
[2022-06-19 21:21] LABS: Troponin I < 0.01 ng/ml (0.00-0.034)
--- NOTE | 2022-06-19 22:15 | PC.NURSE ---
had soup and crackers upon arrival to floor and at this time requested pudding same given
[2022-06-19 23:41] LABS: Troponin I < 0.01 ng/ml (0.00-0.034)
[2022-06-20 04:00] VITALS: BP 134/84; PULSE 63; RESP 18; TEMP 36.6; O2SAT 93; BMI 31.6
[2022-06-20 06:23] VITALS: PULSE 63; PULSE 66; O2SAT 93
[2022-06-20 07:55] VITALS: BP 123/70; PULSE 61; RESP 18; TEMP 37.1; O2SAT 92
[2022-06-20 08:00] VITALS: O2SAT 92
--- NOTE | 2022-06-20 08:32 | HMH.PHAINT1 ---
Pharmacy Intervention Comments: MEDICATION RECONCILIATION COMPLETED ON PATIENT USING EXTERNAL FILL HISTORY FROM PHARMACY. -[facility], [facility]
--- NOTE | 2022-06-20 09:27 | EXP.PULM.CON ---
History of Present Illness History of present illness: Ms. Traylor is a 56-year-old female COPD long-term oxygen therapy at 2 L recently admitted to the hospital in April for COPD exacerbation in Apr 2022 presented to the hospital again 06/19/2022 with progressive worsening respiratory distress along with cough and productive phlegm and pulmonary was consulted for further evaluation [facility] Disclaimer: The information contained in this section may have been updated after the patient was seen, as this information can be updated by other users. Medical History (Updated 06/20/22 @ 12:09 by Keira Lozano MD) Acute and chronic respiratory failure with hypoxia Anxiety Community acquired pneumonia COPD (chronic obstructive pulmonary disease) Opioid dependence Pneumonia Surgical History History of section History of hysterectomy Family History Other No significant family history Social History (Updated 06/19/22 @ 21:01 by Dannielle Chaidez RN) Smoking Status: Current every day smoker tobacco type: cigarettes packs per day: 1 pack-years: 44 smoking status start date: 15 years old years smoked: 44 quit status: has quit before alcohol intake: never substance use type: denies use and former substance user counseling provided: support program and treatment program current occupational status: unemployed and disabled Travel in the last 8 weeks: None adopted: Yes caregiver/support person: No foster care: No household members: significant other and children housing: house lives independently: Yes marital status: education level: college pets and animals: Yes (dog) pets and animals: dog(s) special blanca needs: No agree to transfusion: No do you feel safe at home: Yes victim of physical abuse: No victim of emotional abuse: No victim of sexual abuse: No would you like helpful sources: No Review of Systems Constitutional Constitutional: Reports fatigue, Denies headache(s) and Denies weakness Eyes Eyes: Denies eye discharge, Denies dry eyes, Denies irritation and Denies itchy eyes ENT Ears, Nose, Mouth, and Throat: Denies headache(s), Denies lip swelling and Denies throat swelling *Cardiovascular Cardiovascular: Reports dyspnea and Reports dyspnea on exertion *Respiratory Respiratory: Reports chest congestion, Reports cough, Reports dyspnea, Reports dyspnea on exertion, Reports excessive phlegm production and Reports wheezing *Gastrointestinal Gastrointestinal: Denies abdominal pain, Denies belching and Denies cramping *Musculoskeletal Musculoskeletal: Denies numbness *Neurologic Neurologic: Reports system reviewed and no additional complaints, except as documented, Denies headache(s), Denies numbness and Denies weakness Psychiatric Psychiatric: Denies homicidal ideation and Denies suicidal ideation Endocrine Endocrine: Reports fatigue and Denies heat intolerance Hematologic/Lymphatic Hematologic/Lymphatic: Denies easy bleeding and Denies lymphadenopathy Allergic/Immunologic Allergic/Immunologic: Denies itchy eyes, Denies lip swelling, Denies throat swelling and Reports wheezing Pulmonology Exam Inpatient Vital signs and Labs for Last 24 Hours: Temp Pulse Resp BP Pulse Ox 98.8 F 61 18 123/70 92 L 06/20/22 07:55 06/20/22 07:55 06/20/22 07:55 06/20/22 07:55 06/20/22 07:55 Laboratory Results - last 24 hr 06/19/22 16:31: SARS-CoV-2 (PCR) Not detected, Influenza A Untype (PCR) Not detected, Influenza Type B (PCR) Not detected 06/19/22 16:31: Chlamy pneumoniae PCR Not detected, Adenovirus (PCR) Not detected, B. pertussis DNA (PCR) Not detected, Coronavirus OC43 (PCR) Not detected, Coronavirus HKU1 (PCR) Not detected, Coronavirus 229E (PCR) Not detected, SARS-CoV-2 (PCR) Not detected, Coronavirus NL63 (PCR) Not detected, Human Metapneumovir
--- NOTE | 2022-06-20 10:17 | CA_ITS ---
APPROVED REPORT EXAM: Comprehensive 2D, Doppler, and color-flow Echocardiogram Site Leader: Darcie Jackman RDCS Ht: 5 ft 2 in Wt: 171lbs BSA: 1.79 BP: 123/70 mmHg Indications: bubble study only Conclusion 1. Limited agitated saline contrast study was performed to exclude presence of intracardiac shunt. 2. Agitated saline contrast study did not identify intracardiac shunt. Electronically signed by : Coiln Butler MD 06/20/2022 16:27:47
[2022-06-20 10:40] VITALS: PULSE 82; PULSE 84
--- NOTE | 2022-06-20 14:16 | EXP.DC.SUM ---
General Admission date:: 06/19/22 Discharge date: 06/20/22 HPI HPI HPI: Ms. Traylor is a 56-year-old female with a past medical history of COPD, home oxygen dependent at 2L q hs, chronic tobacco use, Chronic pain syndrome and Anxiety Disorder. She presents to [facility] through the ER due to a 4 day history of cough, progressing shortness of air and dyspnea with exertion. She reports known similar sick contacts, but denies knowing their diagnosis. She denies the use of OTC medications for symptoms, but reports that her PCP gave her some steroids that have only helped minimally. In the ER the patient underwent a Cxray that showed low lung volumes with central vascular crowding consistent with Bronchitis. Covid and Flu testing were negative. Troponin was <0.01. EKG showed NSR with no ST segment elevation or depression. ABG showed mild hypoxemia with pO2 at 60.7 on FiO2 21%. CBC and CMP were unremarkable. Per ER physician she was in the 80's on room air on presentation and quickly recovered with 2L nasal cannula. In the ER she had blood cultures drawn, procalcitonin was ordered and is pending along with full respiratory panel and sputum. She was given Doxycycline, Duonebs and steroids. The patient will be admitted with initial impression: Acute on Chronic Hypoxic Respiratory Failure and COPD exacerbation. Exam Data for Last 24 hours Vital signs and Labs for Last 24 Hours: Temp Pulse Resp BP Pulse Ox 98.8 F 82 18 123/70 92 L 06/20/22 07:55 06/20/22 10:40 06/20/22 07:55 06/20/22 07:55 06/20/22 08:00 Laboratory Results - last 24 hr 06/19/22 16:31: SARS-CoV-2 (PCR) Not detected, Influenza A Untype (PCR) Not detected, Influenza Type B (PCR) Not detected 06/19/22 16:31: Chlamy pneumoniae PCR Not detected, Adenovirus (PCR) Not detected, B. pertussis DNA (PCR) Not detected, Coronavirus OC43 (PCR) Not detected, Coronavirus HKU1 (PCR) Not detected, Coronavirus 229E (PCR) Not detected, SARS-CoV-2 (PCR) Not detected, Coronavirus NL63 (PCR) Not detected, Human Metapneumovir PCR Not detected, Influenza A (H1) PCR Not detected, Influ A (H1N1/09) PCR Not detected, Influenza A (H3) PCR Not detected, Influenza Type A (PCR) Not detected, Influenza Type B (PCR) Not detected, M. pneumoniae (PCR) Not detected, Parainfluenza 1 (PCR) Not detected, Parainfluenza 2 (PCR) Not detected, Parainfluenza 3 (PCR) Not detected, Parainfluenza 4 (PCR) Not detected, RSV (PCR) Not detected, Entero/Rhino (PCR) Not detected 06/19/22 16:45: WBC 7.1, RBC 4.58, Hgb 13.7, Hct 42.4, MCV 92.7, MCH 29.9, MCHC 32.2, RDW 13.6, Plt Count 232, MPV 9.0, Neut % (Auto) 65.4, Lymph % (Auto) 27.8, [place] % (Auto) 4.7, Eos % (Auto) 1.4, Baso % (Auto) 0.7, Neut # (Auto) 4.6, Lymph # (Auto) 2.0, [place] # (Auto) 0.3, Eos # (Auto) 0.1, Baso # (Auto) 0.1 06/19/22 16:45: Sodium 141, Potassium 4.2, Chloride 105, Carbon Dioxide 30, Anion Gap 10.2, BUN 14, Creatinine 0.90, Estimated Creat Clear 86, Estimated GFR 65, Est GFR ( Amer) 78, Glucose 95, Calcium 8.9, Troponin I < 0.01 06/19/22 16:45: Lactate 0.8 06/19/22 16:45: Procalcitonin 0.038 06/19/22 16:45: D-Dimer 0.90 H 06/19/22 17:05: Specimen Source Right radial, O2 % 21, ABG pH 7.38, ABG pCO2 40.2, ABG pO2 60.7 L, ABG HCO3 23.0, ABG Total CO2 24.3, ABG O2 Saturation 93, ABG Base Excess -2.2, Alfred Test Acceptable 06/19/22 20:04: Troponin I < 0.01 06/19/22 20:04: NT-Pro-B Natriuret Pep 118 06/19/22 22:58: Troponin I < 0.01 I & O for Last 24 hours: Intake & Output 06/17/22 06/18/22 06/19/22 06/20/22 23:59 23:59 23:59 23:59 Intake Total 1020 / 1020 Output Total 0 / 0 0 / 0 Balance 0 / 300 1020 / 1020 Weight 77.791 kg 77.927 kg Microbiology Reports for the Last 24 Hours: Microbiology 06/20/22 07:30 Sputum - Expectorated Sputum Gram Stain - Final Constitutional Constitutional: no acute distress *Routine HEENT Exam Head: Present normocephalic Eye: Present EOMI and PERRL ENT: Present
[2022-06-20 14:18] VITALS: PULSE 88; PULSE 92
--- NOTE | 2022-06-20 14:23 | EXP.DC.SUM ---
General Admission date:: 06/19/22 Discharge date: 06/20/22 HPI HPI HPI: Ms. Traylor is a 56-year-old female with a past medical history of COPD, home oxygen dependent at 2L q hs, chronic tobacco use, Chronic pain syndrome and Anxiety Disorder. She presents to [facility] through the ER due to a 4 day history of cough, progressing shortness of air and dyspnea with exertion.? She reports known similar sick contacts, but denies knowing their diagnosis.? She denies the use of OTC medications for symptoms, but reports that her PCP gave her some steroids that have only helped minimally.? In the ER the patient underwent a Cxray that showed low lung volumes with central vascular crowding consistent with Bronchitis.? Covid and Flu testing were negative.? Troponin was <0.01.? EKG showed NSR with no ST segment elevation or depression.? ABG showed mild hypoxemia with pO2 at 60.7 on FiO2 21%.? CBC and CMP were unremarkable.? Per ER physician she was in the 80's on room air on presentation and quickly recovered with 2L nasal cannula. In the ER she had blood cultures drawn, procalcitonin was ordered and is pending along with full respiratory panel and sputum.? She was given Doxycycline, Duonebs and steroids.? The patient will be admitted with initial impression:? Acute on Chronic Hypoxic Respiratory Failure and COPD exacerbation Hospital Course Hospital Course Hospital Course: Patient admitted for COPD exacerbation and worsening respiratory hypoxemic failure. . Pulmonology was consulted. No recent prior PFTs available for review. CT showed emphysematous changes. CTA on admission reviewed, no dense consolidations or atelectasis noted. Focal right lower lobe opacities concerning for atypical pneumonia noted. Tree-in-bud noted. Comprehensive respiratory viral PCR including COVID-19 resulted negative upon admission. Blood gas upon admission on room air/FiO2 21% showed borderline hypoxia with a PaO2 of 60.7. Evidence of hypercarbia noted. Prior sputum cultures positive for strep pneumonia. improved on admission. transitioned to levofloxacin 750mg daily. Patient continued to remain on 2 L nasal cannula saturating 90% this morning. Bilateral diffuse wheezing on auscultation. resume trelegy. limited echocardiogram negative for shunt. discharge and follow up pulm in 1 week. Exam Data for Last 24 hours Vital signs and Labs for Last 24 Hours: Temp Pulse Resp BP Pulse Ox 98.8 F 88 18 123/70 92 L 06/20/22 07:55 06/20/22 14:18 06/20/22 07:55 06/20/22 07:55 06/20/22 08:00 Laboratory Results - last 24 hr 06/19/22 16:31: SARS-CoV-2 (PCR) Not detected, Influenza A Untype (PCR) Not detected, Influenza Type B (PCR) Not detected 06/19/22 16:31: Chlamy pneumoniae PCR Not detected, Adenovirus (PCR) Not detected, B. pertussis DNA (PCR) Not detected, Coronavirus OC43 (PCR) Not detected, Coronavirus HKU1 (PCR) Not detected, Coronavirus 229E (PCR) Not detected, SARS-CoV-2 (PCR) Not detected, Coronavirus NL63 (PCR) Not detected, Human Metapneumovir PCR Not detected, Influenza A (H1) PCR Not detected, Influ A (H1N1/09) PCR Not detected, Influenza A (H3) PCR Not detected, Influenza Type A (PCR) Not detected, Influenza Type B (PCR) Not detected, M. pneumoniae (PCR) Not detected, Parainfluenza 1 (PCR) Not detected, Parainfluenza 2 (PCR) Not detected, Parainfluenza 3 (PCR) Not detected, Parainfluenza 4 (PCR) Not detected, RSV (PCR) Not detected, Entero/Rhino (PCR) Not detected 06/19/22 16:45: WBC 7.1, RBC 4.58, Hgb 13.7, Hct 42.4, MCV 92.7, MCH 29.9, MCHC 32.2, RDW 13.6, Plt Count 232, MPV 9.0, Neut % (Auto) 65.4, Lymph % (Auto) 27.8, [place] % (Auto) 4.7, Eos % (Auto) 1.4, Baso % (Auto) 0.7, Neut # (Auto) 4.6, Lymph # (Auto) 2.0, [place] # (Auto) 0.3, Eos # (Auto) 0.1, Baso # (Auto) 0.1 06/19/22 16:45: Sodium 141, Potassium 4.2, Chloride 105, Carbon Dioxide 30, Anion Gap 10.2, BUN 14, Creatinine 0.90, Estimated Creat Clear 86, Estimated GFR 65, Est GFR ( Amer)
--- NOTE | 2022-06-23 13:58 | CARE MANAGER ---
Spoke with patient related to hospital discharge. She states she is doing well. She denies any issues and has her meds and is aware of follow up appointments. EMEKA Hanley
== END 2022-06-20 15:35 | disposition home or self-care (01) ==
LOC: ER 19:36 → 2ND 20:26
PROVIDERS: Nurse Practitioner Family; Admitting Provider Internal Medicine Adolescent Medicine; Emergency Provider Emergency Medicine; PCP Emergency Medicine; Visit Provider Internal Medicine Adolescent Medicine
DX: J96.21 Acute and chronic respiratory failure with hypoxia (principal); J44.1 Chronic obstructive pulmonary disease with (acute) exacerbation; J18.9 Pneumonia, unspecified organism; I10 Essential (primary) hypertension; F41.9 Anxiety disorder, unspecified; F17.210 Nicotine dependence, cigarettes, uncomplicated; Z79.891 Long term (current) use of opiate analgesic; Z79.899 Other long term (current) drug therapy; Z79.890 Hormone replacement therapy; Z99.81 Dependence on supplemental oxygen; Z20.822 Contact with and (suspected) exposure to COVID-19
CPT/HCPCS: G0378; 36415; 71045; 71275; 80048; 82803; 83605; 83880; 84145; 84484; 85025; 85378; 87040; 87070; 87077; 87186; 87205; 87581; 87632; 87798; 93005; 93308; 94640; 99285; C9803; J0574; Q9967; U0003; U0005

== ENCOUNTER 2022-07-14 22:23 | Emergency (ER) | payer MEDICARE, MEDICAID, SELFPAY ==
[2022-07-14 22:25] VITALS: BP 155/87; PULSE 79; RESP 16; TEMP 36.9; O2SAT 93; BMI 31.1
[2022-07-14 22:27] VITALS: BMI 26.4
--- NOTE | 2022-07-14 22:27 | XR_ITS ---
PROCEDURE INFORMATION: Exam: XR Chest Exam date and time: 07/14/2022 10:48 PM Age: 56 years old Clinical indication: Patient HX: PT denies any chest pain/soa. C/O fatigue TECHNIQUE: Imaging protocol: Radiologic exam of the chest. Views: 2 views. COMPARISON: CR XR CHEST PORTABLE 06/19/2022 5:23 PM FINDINGS: Lungs: Unremarkable. No consolidation. Pleural spaces: Unremarkable. No pleural effusion. No pneumothorax. Heart/Mediastinum: Unremarkable. No cardiomegaly. Bones/joints: Unremarkable. IMPRESSION: No acute findings.
[2022-07-14 22:41] LABS: ABG Base Excess 1.2 mmol/L (-2.4-2.3); ABG HCO3 26.4 mmhg (22.0-26.0); ABG Oxygen Saturation 93 % (90-100); ABG PCO2 46.2 mmhg (35.0-45.0); ABG PH 7.38 mmol/L (7.35-7.45); ABG TCO2 27.8 mmhg (23-27)
[2022-07-14 22:43] LABS: Allen's Test Acceptable; Oxygen ROOM AIR %; Source Right Radial
[2022-07-14 22:47] LABS: Basophils # 0.1 K/mm3 (0-0.2); Basophils % 0.9 % (0.1-2.0); Eosinophils # 0.3 K/mm3 (0.0-0.4); Eosinophils % 4.8 % (0.1-12.0); Hemoglobin 14.4 g/dL (12.2-16.2); Lymphocytes # 2.4 K/mm3 (0.7-4.5); Mean Corpuscular HGB Conc 31.9 g/dL (31.8-35.4); Mean Corpuscular Hemoglobin 29.5 pg (27.0-31.2); Mean Corpuscular Volume 92.5 fl (81-99); Mean Platelet Volume 8.3 fl (7.4-10.4); Monocytes # 0.4 K/mm3 (0.1-1.0); Monocytes % 6.6 % (1.7-9.3); Neutrophils # 2.9 K/mm3 (1.8-7.8); Neutrophils % 48.7 % (37.0-80.0); Platelet Count 212 K/mm3 (142-424); Red Blood Count 4.87 M/mm3 (4.20-5.40); Red Cell Distribution Width 14.1 % (11.5-17.5)
--- NOTE | 2022-07-14 22:50 | ECG_ITS ---
APPROVED REPORT Exam: Resting ECG HR:77 bpm ECG Measurements Heart Rate 77 AXES HI 182 P 80 QRSd 118 QRS 69 QT 416 T 68 QTc 447 Conclusion SINUS RHYTHM MODERATE INTRAVENTRICULAR CONDUCTION DELAY [110+ ms QRS DURATION] NONSPECIFIC T-WAVE ABNORMALITY BORDERLINE ECG UNCONFIRMED REPORT Electronically signed by : Sudhakar Mathew MD 07/15/2022 08:49:48
[2022-07-14 22:55] LABS: Lactic Acid 0.8 mmol/L (0.7-2.1)
[2022-07-14 23:10] LABS: Chloride 103 mmol/L (98-107); Potassium 3.8 mmoL/L (3.5-5.1); Sodium 141 mmol/L (136-145)
[2022-07-14 23:12] VITALS: PULSE 60; PULSE 65
[2022-07-14 23:13] LABS: Alanine Aminotransferase 13 U/L (12-78); Albumin Level 4.1 g/dl (3.5-5.0); Albumin/Globulin Ratio 1.4 (1.1-1.8); Alkaline Phosphatase 90 U/L (38-126); Anion Gap 10.8 mEq/L (5-15); Aspartate Amino Transferase 23 U/L (14-36); Bilirubin,Total 0.5 mg/dl (0.2-1.3); Blood Urea Nitrogen 11 mg/dl (7-17); Carbon Dioxide 31 mmol/L (22.0-30.0); Creatinine Clearance Estimated 55 mL/min (50-200); Estimated Glomerular Filt Rate 51 ml/min (>60); GFR (African American) 62 ML/MIN (>60); Globulin 2.9 g/dL (1.3-3.2)
[2022-07-14 23:14] LABS: Glucose 101 mg/dl (74-100)
[2022-07-14 23:22] LABS: NT Pro Brain Natriuretic Pep. 87.7 pg/mL (0-125)
[2022-07-14 23:29] LABS: Troponin I < 0.01 ng/ml (0.00-0.034)
--- NOTE | 2022-07-14 23:34 | HMH.EDSOB ---
Discharge Plan Disposition Patient Disposition: Home, Self-Care Condition: Good Chief Complaint: Shortness of Breath/Dyspnea Prescriptions Prescriptions: No Action trazodone 50 mg tablet 50 mg PO HS Qty: 30 2RF albuterol sulfate 90 mcg/actuation HFA aerosol inhaler 2 inh inhalation QID PRN (Reason: shortness of breath or wheezing) 90 Days Qty: 8.5 2RF ipratropium-albuterol 0.5 mg-3 mg(2.5 mg base)/3 mL solution for nebulization 3 ml inhalation QID PRN (Reason: shortness of breath or wheezing) Qty: 90 3RF estradiol 1 mg tablet 1 mg PO DAILY Qty: 30 9RF Trelegy Ellipta 100-62.5-25 mcg blister with device 1 inh inhalation DAILY buprenorphine-naloxone [Suboxone] 8-2 mg Film 2 film BUCCAL DAILY lisinopril 20 mg tablet 20 mg PO DAILY fluticasone propionate [Flonase Allergy Relief] 50 mcg/actuation spray,suspension 1 spray intranasal DAILYP PRN (Reason: allergies) Hold Instructions: Resume on 06/27/22. Rx Instructions: administer into each nostril ipratropium-albuterol 0.5 mg-3 mg(2.5 mg base)/3 mL solution for nebulization 3 ml inhalation QID bupropion HCl 75 mg tablet 75 mg PO BID Referrals Follow up/Referrals: Raymond Mendez MD [Primary Care Provider] - See instructions Clinical Impressions Clinical Impression: COPD (chronic obstructive pulmonary disease), Tobacco abuse, Anginal equivalent Instructions Patient Instructions: DI for Shortness of Breath Discharge ED Provider: Andrea (ED)Raymond Resp/SOB HPI General Chief Complaint: Shortness of Breath/Dyspnea Stated Complaint: SOA, Sleeping alot Time Seen by Provider: 07/14/22 23:36 Mode of Arrival: Ambulatory Source of Information: Patient, Relative and Medical Record Limitations: No Limitations Description of Symptoms (Recalled from ER Triage Doc. by RN): pt c/o increasing SOA and sleepness x several days History of Present Illness sob and fatigued as of late and more sob with min exertion no def chest pain Complaint: shortness of breath Onset (ago): day(s) Severity: moderate Consistency/Duration: intermittent Known history of: COPD Associated symptoms: denies other symptoms Related Data Home oxygen amount: 2 liters Home Medications Medication Instructions Recorded Confirmed buprenorphine 8 mg-naloxone 2 mg 2 film buccal DAILY WITHDRAWAL 02/10/22 07/14/22 sublingual film (Suboxone) SYMPTOMS fluticasone propionate 50 1 spray intranasal DAILYP PRN 05/08/22 07/14/22 mcg/actuation nasal allergies spray,suspension (Flonase Allergy Relief) lisinopril 20 mg tablet 20 mg PO DAILY Hypertension 05/08/22 07/14/22 ipratropium 0.5 mg-albuterol 3 mg 3 ml inhalation QID Breathing 05/23/22 07/14/22 (2.5 mg base)/3 mL nebulization problems soln bupropion HCl 75 mg tablet 75 mg PO BID Depression 05/24/22 07/14/22 fluticasone fur. 100 mcg-umeclid 1 inh inhalation DAILY Breathing 07/14/22 07/14/22 62.5 mcg-vilant 25 mcg problems inhalat.powder (Trelegy Ellipta) Previous Rx's Medication Instructions Recorded trazodone 50 mg tablet 50 mg PO HS sleep #30 tabs 05/19/22 estradiol 1 mg tablet 1 mg PO DAILY HORMONE REPLACEMENT 06/24/22 #30 tabs albuterol sulfate 90 mcg/actuation 2 inh inhalation QID PRN shortness 07/02/22 aerosol inhaler of breath or wheezing 90 days #8.5 grams ipratropium 0.5 mg-albuterol 3 mg 3 ml inhalation QID PRN shortness 07/02/22 (2.5 mg base)/3 mL nebulization of breath or wheezing #90 mL soln Allergies Allergy/AdvReac Type Severity Reaction Status Date / Time Penicillins Allergy Mild Verified 07/02/22 13:[address] [facility] Disclaimer: The information contained in this section may have been updated after the patient was seen, as this information can be updated by other users. Medical History Acute and chronic respiratory failure with hypoxia Anxiety Community acquired pneumonia COPD (chronic obstructive pulmonary disease) COPD m
[2022-07-15 00:02] VITALS: BP 142/74; PULSE 70; RESP 15; TEMP 36.6; O2SAT 91
== END 2022-07-15 00:17 | disposition home or self-care (01) ==
PROVIDERS: Emergency Provider Emergency Medicine; PCP Emergency Medicine
DX: R06.02 Shortness of breath (principal); J44.9 Chronic obstructive pulmonary disease, unspecified; F17.210 Nicotine dependence, cigarettes, uncomplicated
CPT/HCPCS: 71046; 80053; 82803; 83605; 83880; 84484; 85025; 87040; 93005; 96374; 99285

== ENCOUNTER 2022-08-13 21:32 | Emergency (ER) | payer MEDICARE, MEDICAID, SELFPAY ==
--- NOTE | 2022-08-13 21:30 | ECG_ITS ---
APPROVED REPORT Exam: Resting ECG HR:81 bpm ECG Measurements Heart Rate 81 AXES DE 188 P 78 QRSd 121 QRS 71 QT 382 T 72 QTc 419 Conclusion SINUS RHYTHM MODERATE INTRAVENTRICULAR CONDUCTION DELAY [110+ ms QRS DURATION] BORDERLINE ECG UNCONFIRMED REPORT Electronically signed by : Sudhakar Mathew MD 08/14/2022 21:39:40
[2022-08-13 21:33] VITALS: BP 170/99; PULSE 81; RESP 16; TEMP 37.1; O2SAT 94; BMI 31.1
--- NOTE | 2022-08-13 21:34 | XR_ITS ---
PROCEDURE INFORMATION: Exam: XR Chest Exam date and time: 08/13/2022 9:43 PM Age: 56 years old Clinical indication: Sternal or substernal pain; Additional info: Cp TECHNIQUE: Imaging protocol: Radiologic exam of the chest. Views: 2 views. COMPARISON: CR XR CHEST 2V 07/14/2022 10:48 PM FINDINGS: Lungs: Unremarkable. No consolidation. Pleural spaces: Unremarkable. No pleural effusion. No pneumothorax. Heart/Mediastinum: Unremarkable. No cardiomegaly. Bones/joints: Unremarkable. IMPRESSION: No acute findings.
--- NOTE | 2022-08-13 21:43 | [facility].EDCP ---
Discharge Plan Disposition Patient Disposition: Home, Self-Care Chief Complaint: Chest Pain Prescriptions Prescriptions: No Action trazodone 50 mg tablet 50 mg PO HS Qty: 30 2RF albuterol sulfate 90 mcg/actuation HFA aerosol inhaler 2 inh inhalation QID PRN (Reason: shortness of breath or wheezing) 90 Days Qty: 8.5 2RF ipratropium-albuterol 0.5 mg-3 mg(2.5 mg base)/3 mL solution for nebulization 3 ml inhalation QID PRN (Reason: shortness of breath or wheezing) Qty: 90 3RF estradiol 1 mg tablet 1 mg PO DAILY Qty: 30 9RF lisinopril 20 mg tablet See Rx Instructions .ROUTE .COMPLEX Qty: 30 0RF Dose Instruction: TAKE ONE TABLET BY MOUTH ONCE A DAY Rx Instructions: TAKE ONE TABLET BY MOUTH ONCE A DAY Trelegy Ellipta 100-62.5-25 mcg blister with device 1 inh inhalation DAILY buprenorphine-naloxone [Suboxone] 8-2 mg Film 2 film BUCCAL DAILY fluticasone propionate [Flonase Allergy Relief] 50 mcg/actuation spray,suspension 1 spray intranasal DAILYP PRN (Reason: allergies) Hold Instructions: Resume on 06/27/22. Rx Instructions: administer into each nostril ipratropium-albuterol 0.5 mg-3 mg(2.5 mg base)/3 mL solution for nebulization 3 ml inhalation QID Referrals Follow up/Referrals: Raymond Mendez MD [Primary Care Provider] - See instructions Clinical Impressions Clinical Impression: Chest pain Instructions Patient Instructions: DI for Atypical Chest Pain Discharge ED Provider: Andrea (ED)Raymond Chest Pain HPI General Chief Complaint: Chest Pain Stated Complaint: chest pain Time Seen by Provider: 08/13/22 21:43 Mode of Arrival: Ambulatory Source of Information: Patient and Medical Record Limitations: No Limitations Description of Symptoms (Recalled from ER Triage Doc. by RN): Pt arrives to ED with c.o right sided chest pain that has been constant since 1700. Pt stated it started after she ate dinner, she did take pepto bismo in attempt to treat her pain, but stated it did not help. History of Present Illness HPI narrative: this evening achey type midline pain - MD complaint: chest pain Onset (ago): hour(s) Duration: intermittent Activity at onset: after eating Pain location: epigastric Severity: moderate Quality: aching Pain radiation: none Risk Factors for CAD: Hypertension, Family Hx of CAD and Smoking Treatments prior to or on arrival for Cardiac Chest Pain: none HAYDEE Score for Non-Stemi Age of Patient: 50-59 years old Heart Rate: 70-89 bpm Systolic Blood Pressure: 140-159 mmHg Serum Creatinine: 0.80-1.19 mg/dl CHF [place] Class: I-No CHF Other Risk Factors: None Non-Stemi Risk Score: 81 Risk Stratification: 1-108 = Low Risk Related Data On Oral Contraceptives: No Home Medications Medication Instructions Recorded Confirmed buprenorphine 8 mg-naloxone 2 mg 2 film buccal DAILY WITHDRAWAL 02/10/22 07/16/22 sublingual film (Suboxone) SYMPTOMS fluticasone propionate 50 1 spray intranasal DAILYP PRN 05/08/22 07/16/22 mcg/actuation nasal allergies spray,suspension (Flonase Allergy Relief) ipratropium 0.5 mg-albuterol 3 mg 3 ml inhalation QID Breathing 05/23/22 07/16/22 (2.5 mg base)/3 mL nebulization problems soln fluticasone fur. 100 mcg-umeclid 1 inh inhalation DAILY Breathing 07/14/22 07/16/22 62.5 mcg-vilant 25 mcg problems inhalat.powder (Trelegy Ellipta) Previous Rx's Medication Instructions Recorded trazodone 50 mg tablet 50 mg PO HS sleep #30 tabs 05/19/22 estradiol 1 mg tablet 1 mg PO DAILY HORMONE REPLACEMENT 06/24/22 #30 tabs albuterol sulfate 90 mcg/actuation 2 inh inhalation QID PRN shortness 07/02/22 aerosol inhaler of breath or wheezing 90 days #8.5 grams ipratropium 0.5 mg-albuterol 3 mg 3 ml inhalation QID PRN shortness 07/02/22 (2.5 mg base)/3 mL nebulization of breath or wheezing #90 mL soln lisinopril 20 mg tablet See Rx Instructions .Route 07/18/22 .COMPLEX #30 tabs
--- NOTE | 2022-08-13 21:51 | PC.NURSE ---
Pt gone to RAD via wheelchair
--- NOTE | 2022-08-13 21:54 | PC.NURSE ---
pt back from scan
[2022-08-13 21:58] LABS: Basophils # 0.1 K/mm3 (0-0.2); Basophils % 0.4 % (0.1-2.0); Eosinophils # 0.3 K/mm3 (0.0-0.4); Eosinophils % 2.6 % (0.1-12.0); Hematocrit 45.1 % (37.0-47.0); Hemoglobin 14.9 g/dL (12.2-16.2); Lymphocytes # 1.9 K/mm3 (0.7-4.5); Lymphocytes % 17.3 % (10-50); Mean Corpuscular HGB Conc 33.1 g/dL (31.8-35.4); Mean Corpuscular Hemoglobin 30.8 pg (27.0-31.2); Mean Corpuscular Volume 92.9 fl (81-99); Mean Platelet Volume 8.3 fl (7.4-10.4); Monocytes # 0.4 K/mm3 (0.1-1.0); Monocytes % 3.7 % (1.7-9.3); Neutrophils # 8.5 K/mm3 (1.8-7.8); Neutrophils % 76.1 % (37.0-80.0); Platelet Count 207 K/mm3 (142-424); Red Blood Count 4.85 M/mm3 (4.20-5.40); Red Cell Distribution Width 13.7 % (11.5-17.5); White Blood Count 11.2 K/mm3 (4.8-10.8)
[2022-08-13 22:01] LABS: Alanine Aminotransferase 17 U/L (12-78); Albumin Level 4.4 g/dl (3.5-5.0); Albumin/Globulin Ratio 1.5 (1.1-1.8); Alkaline Phosphatase 94 U/L (38-126); Anion Gap 15.4 mEq/L (5-15); Aspartate Amino Transferase 44 U/L (14-36); Blood Urea Nitrogen 12 mg/dl (7-17); Calcium 9.1 mg/dl (8.4-10.2); Carbon Dioxide 30 mmol/L (22.0-30.0); Chloride 97 mmol/L (98-107); Creatinine Clearance Estimated 84 mL/min (50-200); Estimated Glomerular Filt Rate 65 ml/min (>60); GFR (African American) 78 ML/MIN (>60); Glucose 87 mg/dl (74-100); Potassium 4.4 mmoL/L (3.5-5.1); Sodium 138 mmol/L (136-145); Total Protein,Serum 7.4 g/dl (6.3-8.2)
[2022-08-13 22:13] LABS: NT Pro Brain Natriuretic Pep. 199 pg/mL (0-125); Troponin I 0.01 ng/ml (0.00-0.034)
[2022-08-13 23:30] VITALS: BP 131/75; RESP 24; O2SAT 99
[2022-08-14] VITALS: BP 116/69; RESP 22; O2SAT 100
[2022-08-14 00:30] VITALS: BP 116/68; RESP 22; O2SAT 99
[2022-08-14 01:00] VITALS: BP 113/64; RESP 16; O2SAT 97
[2022-08-14 01:18] LABS: Troponin I < 0.01 ng/ml (0.00-0.034)
[2022-08-14 01:30] VITALS: BP 111/69; BP 113/64; PULSE 73; PULSE 78; PULSE 80; RESP 16; RESP 22; TEMP 36.6; O2SAT 90; O2SAT 98
== END 2022-08-14 01:30 | disposition home or self-care (01) ==
PROVIDERS: Emergency Provider Emergency Medicine; PCP Emergency Medicine
DX: R07.9 Chest pain, unspecified (principal); F17.210 Nicotine dependence, cigarettes, uncomplicated
CPT/HCPCS: 71046; 80053; 83880; 84484; 85025; 93005; 96361; 96374; 96375; 99285; J0131